=== PATIENT | male | born 1950 | race American Indian/Alaskan Native ===

== ENCOUNTER 2017-06-12 04:24 | Emergency (ER) | payer MEDICARE ==
[2017-06-12 05:27] LABS: Basophils % (Auto) 0.9 % (0.0-1.8); Eosinophils % (Auto) 2.6 % (0.0-4.3); Hematocrit 36.2 % (35.5-45.6); Hemoglobin 11.4 gm/dl (11.8-15.2); Mean Corpuscular HGB Conc 31 % (32-34); Mean Corpuscular Volume 71 fl (84-94); Platelet Count 144 K/mm3 (140-440); Red Blood Count 5.12 M/mm3 (3.65-5.03); Red Cell Distribution Width 15.2 % (13.2-15.2); White Blood Count 5.3 K/mm3 (4.5-11.0)
[2017-06-12 05:29] LABS: Mean Corpuscular Hemoglobin 22 pg (28-32)
[2017-06-12 05:45] LABS: Anion Gap 23 mmol/L; Blood Urea Nitrogen 14 mg/dL (9-20); Calcium 9.3 mg/dL (8.4-10.2); Carbon Dioxide 20 mmol/L (22-30); Chloride 101.2 mmol/L (98-107); Glucose 286 mg/dL (75-100); Potassium 3.8 mmol/L (3.6-5.0); Sodium 140 mmol/L (137-145)
[2017-06-12 06:00] LABS: Bilirubin,Urine NEG (Negative); Blood,Urine MOD (Negative); Ketones,Urine NEG (Negative); Leukocyte Esterase,Urine NEG (Negative); Nitrite,Urine NEG (Negative); Protein,Urine <15 mg/dL mg/dL (Negative); Urobilinogen,Urine < 2.0 mg/dL (<2.0); WBC,Urine < 1.0 /HPF (0.0-6.0)
[2017-06-12 06:04] LABS: Erythrocyte Sedimentation Rate 7 mm/Hr (0-20)
[2017-06-12 07:56] VITALS: BP 181/117
== END 2017-06-12 08:20 ==
LOC: ED 04:24
DX: M79.671 Pain in right foot (principal); M79.672 Pain in left foot; Z53.21 Procedure and treatment not carried out due to patient leaving prior to being seen by health care provider
CPT/HCPCS: 36415; 80048; 81001; 82140; 82805; 83880; 85025; 85652

== ENCOUNTER 2021-04-06 18:04 | Inpatient (IN) | payer MEDICARE ==
--- NOTE | 2021-04-06 18:12 | Emergency Department Report ---
ED Neuro Deficit HPI - General Chief Complaint: Weakness Stated Complaint: stroke Time Seen by Provider: 04/06/21 18:07 Source: patient, EMS Mode of arrival: Stretcher Limitations: No Limitations - History of Present Illness Initial Comments: Patient is 70-year-old male who presents emergency room with complaints of worsening left-sided weakness, left facial droop, slurred speech, difficulty speaking, confusion. Patient states his last known well time was at 1 PM. Patient states he has had 4 strokes in the past but he did not have the severe weakness on his left side. Patient states he is always been able to move his limbs equally. Patient states that no modifying factors. Patient denies chest pain shortness of breath. Patient states he had some confusion . Patient denies fever or chills. Patient denies recent travel. Patient denies recent international travel. Patient denies exposure to the novel coronavirus. Patient denies sick contacts. Patient denies fever and chills. Patient denies cough. Patient denies diarrhea. Patient denies coming in contact with anybody with symptoms of the novel coronavirus. Patient brought in by EMS. EMS report received. -: Sudden Location: speech, left face, left arm, left leg Presenting Symptoms: Present: Weak/Paralyzed One Side, Facial Droop/Numbness, Unable to Speak Clearly History of same: Yes Place: home Severity: severe Quality: constant Improves With: none Worsens With: none On Anticoagulants: Yes Context: sudden onset Associated Symptoms: confusion, weakness. denies: chest pain, cough, diaphoresis, fever/chills, headaches, loss of appetite, malise, nausea/vomiting, vertigo, seizures, shortness of breath, syncope - Related Data Allergies/Adverse Reactions: Allergies Allergy/AdvReac Type Severity Reaction Status Date / Time No Known Allergies Allergy Verified 06/12/17 04:37 ED Review of Systems ROS: Stated complaint: STORKE Other details as noted in HPI Constitutional: weakness. denies: chills, fever Eyes: denies: eye pain, eye discharge, vision change ENT: denies: ear pain, throat pain Respiratory: denies: cough, shortness of breath, wheezing Cardiovascular: denies: chest pain, palpitations Endocrine: no symptoms reported Gastrointestinal: denies: abdominal pain, nausea, diarrhea Genitourinary: denies: urgency, dysuria Musculoskeletal: denies: back pain, joint swelling, arthralgia Skin: denies: rash, lesions Neurological: as per HPI, weakness, confusion. denies: headache, paresthesias Psychiatric: denies: anxiety, depression Hematological/Lymphatic: denies: easy bleeding, easy bruising ED Past Medical Hx - Past Medical History Previous Medical History?: Yes Hx Hypertension: Yes Hx CVA: Yes Hx Diabetes: Yes Additional medical history: Neuropathy feet - Surgical History Past Surgical History?: No - Family History Family history: no significant - Social History Smoking Status: Never Smoker Substance Use Type: None ED Neuro Physical Exam - General General appearance: alert, in no apparent distress Suspected Stroke: Yes - Head Head exam: Present: atraumatic, normocephalic - Eye Eye exam: Present: normal appearance - ENT ENT exam: Present: mucous membranes moist - Neck Neck exam: Present: normal inspection - Respiratory Respiratory exam: Present: normal lung sounds bilaterally. Absent: respiratory distress - Cardiovascular Cardiovascular Exam: Present: regular rate, normal rhythm. Absent: systolic murmur, diastolic murmur, rubs, gallop - GI/Abdominal GI/Abdominal exam: Present: soft, normal bowel sounds - Rectal Rectal exam: Present: deferred - Extremities Exam Extremities exam: Present: normal inspection - Back Exam Back exam: Present: normal inspection - Neurological Exam Neurological exam: Present: alert, oriented X3 - NIHSS Assessment Interval: Baseline 1a. Level of Consciousness: alert/keenly responsive 1b. LOC Questions: answers both correctly 1c. LOC Commands: performs tasks correctly 2. Best Gaze: normal 3. Visual: no visual loss 4. Facial Palsy: partial paralysis 5b. Motor Arm Right: no drift 5a. Motor Arm Left: drift 6a. Motor Leg Left: drift 6b. Motor Leg Right: no drift 7. Limb Ataxia: absent 8. Sensory: normal 9. Best Language: no aphasia 10. Dysarthria: mild/moderate dysarthria 11. Extinction/Inattention: no abnormality Total Score: 5 Stroke Severity: Moderate Stroke - Psychiatric Psychiatric exam: Present: normal affect, normal mood - Skin Skin exam: Present: warm, dry, intact, normal color. Absent: rash ED Course Vital Signs 04/06/21 04/06/21 04/06/21 18:43 19:30 19:46 Temperature 98.8 F Pulse Rate 110 H 89 86 Respiratory 18 17 24 Rate Blood Pressure 156/76 96/57 141/73 Blood Pressure [Right] O2 Sat by Pulse 98 98 98 Oximetry 04/06/21 04/06/21 04/06/21 20:00 20:16 20:30 Temperature Pulse Rate 87 81 82 Respiratory 18 16 18 Rate Blood Pressure 133/74 133/74 135/71 Blood Pressure [Right] O2 Sat by Pulse 98 98 97 Oximetry 04/06/21 04/06/21 04/06/21 20:40 20:50 20:54 Temperature Pulse Rate 79 82 101 H Respiratory 15 18 15 Rate Blood Pressure 131/74 137/81 Blood Pressure 103/62 [Right] O2 Sat by Pulse 98 97 100 Oximetry 04/06/21 04/06/21 21:00 21:10 Temperature Pulse Rate 82 76 Respiratory 16 14 Rate Blood Pressure 131/77 131/77 Blood Pressure [Right] O2 Sat by Pulse 95 97 Oximetry - Reevaluation(s) Reevaluation #1: Patient already been seen by neurology. No change in the patient's neurologic status. Patient vital signs are stable. 04/06/21 18:37 Reevaluation #2: Patient denies chest pain. Patient denies shortness of breath. No change in neurologic status. 04/06/21 19:18 Reevaluation #3: I discussed all results with patient. I discussed plan of care with patient. Patient agrees with plan of care and admission. Patient to be admitted to the hospitalist service. 04/06/21 20:18 - Consultations Consultation #2: Hospitalist consulted for admission. Hospitalist to admit patient. 04/06/21 20:17 - Lab Data Result diagrams: 04/06/21 18:45 04/06/21 18:45 Lab Results 04/06/21 04/06/21 04/06/21 Range/Units 18:45 18:45 18:45 WBC 15.6 H (4.5-11.0) K/mm3 RBC 5.77 H (3.65-5.03) M/mm3 Hgb 12.8 (11.8-15.2) gm/dl Hct 41.1 (35.5-45.6) % MCV 71 L (84-94) fl MCH 22 L (28-32) pg MCHC 31 L (32-34) % RDW 16.2 H (13.2-15.2) % Plt Count 102 L (140-440) K/mm3 Seg Neutrophils % Greenhouse Transplanter PT 15.4 H (12.2-14.9) Sec. INR 1.16 H (0.87-1.13) APTT 26.0 (24.2-36.6) Sec. Thrombin Time (15.1-19.6) Sec. Sodium 141 (137-145) mmol/L Potassium 3.5 L (3.6-5.0) mmol/L Chloride 105.1 (98-107) mmol/L Carbon Dioxide 25 (22-30) mmol/L Anion Gap 14 mmol/L BUN 22 H (9-20) mg/dL Creatinine 1.3 (0.8-1.3) mg/dL Estimated GFR > 60 ml/min BUN/Creatinine Ratio 17 % Glucose 125 H (75-100) mg/dL Calcium 9.1 (8.4-10.2) mg/dL Troponin T 0.015 (0.00-0.029) ng/mL 04/06/21 Range/Units 18:45 WBC (4.5-11.0) K/mm3 RBC (3.65-5.03) M/mm3 Hgb (11.8-15.2) gm/dl Hct (35.5-45.6) % MCV (84-94) fl MCH (28-32) pg MCHC (32-34) % RDW (13.2-15.2) % Plt Count (140-440) K/mm3 Seg Neutrophils % PT (12.2-14.9) Sec. INR (0.87-1.13) APTT (24.2-36.6) Sec. Thrombin Time 16.7 (15.1-19.6) Sec. Sodium (137-145) mmol/L Potassium (3.6-5.0) mmol/L Chloride (98-107) mmol/L Carbon Dioxide (22-30) mmol/L Anion Gap mmol/L BUN (9-20) mg/dL Creatinine (0.8-1.3) mg/dL Estimated GFR ml/min BUN/Creatinine Ratio % Glucose (75-100) mg/dL Calcium (8.4-10.2) mg/dL Troponin T (0.00-0.029) ng/mL - EKG Data -: EKG Interpreted by Tx EKG shows normal: sinus rhythm, axis, intervals, QRS complexes, ST-T waves Rate: normal - Radiology Data Radiology results: report reviewed CT head/brain wo con INDICATION / CLINICAL INFORMATION: 70 years Male; neuro deficits <6hrs or sx present upon awakening. TECHNIQUE: Routine CT head without contrast. All CT scans at this location are performed using CT dose reduction for ALARA by means of automated exposure control. COMPARISON: None. FINDINGS: BRAIN / INTRACRANIAL CONTENTS: There is a small lacunar infarct along the anterior right internal capsule which appears chronic though correlation would be needed given the history. There is otherwise mild cerebral white matter disease most consistent with microvascular angiopathy. There are also appear to be mild white matter changes within the toro at. The ventricular system is within normal limits in size and configuration. There is no clear CT evidence of acute intracranial hemorrhage or significant mass effect. ORBITS: No significant abnormality of visualized orbits. SINUSES / MASTOIDS: No significant abnormality in the visualized paranasal sinuses or mastoid air cells. CRANIOCERVICAL JUNCTION: No significant abnormality. ADDITIONAL FINDINGS: None. IMPRESSION: 1. 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 CT angio head INDICATION / CLINICAL INFORMATION: 70 years Male; weakness. r/o cva/. slurred speech. TECHNIQUE: Thin cut axial images obtained through the head during IV bolus con trast administration. Sagittal, coronal, and 3 plane MIP reconstructions performed by the [employer] . NASCET type criteria used evaluate stenoses. Automated exposure control utilized for radiation reduction purposes. COMPARISON: None available. FINDINGS: INTERNAL CAROTID ARTERIES: The motion and beam hardening degrade the image quality, particularly along the skull base at. However, there is atherosclerotic calcification involving distal internal carotid arteries with apparent mild to moderate narrowing, particularly involving the cavernous segments. 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 The distal right vertebral artery is dominant without significant focal narrowing. There is notable irregularity of the basilar artery which may reflect extensive atherosclerotic disease at. There is moderate to marked segmental stenosis involving more distal segment at. Milder narrowing is seen more proximally. CEREBRAL ARTERIES: There is diffuse irregularity of the cerebral arteries which may be exacerbated by the degree of motion though would also be indicative of diffuse atherosclerotic disease at. 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 ANEURYSM: None identified. 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 IMPRESSION: There is notable irregularity of the basilar artery with moderate to marked segmental narrowing of the mid to distal segment at. There is atherosclerotic calcification involving distal internal carotid arteries with mild to moderate segmental narrowing, most notably involving cavernous segments. There is diffuse irregularity of the intracranial vessels which appears to be exacerbated by the degree of motion. However, the findings be indicative of diffuse atherosclerotic disease as described. CT angio neck INDICATION / CLINICAL INFORMATION: 70 years Male; weakness. r/o cva/. slurred speech. TECHNIQUE: Thin cut axial images obtained through the head during IV bolus contrast administration. Sagittal, coronal, and 3 plane MIP reconstructions performed by the technologist. NASCET type criteria used evaluate stenoses. All CT scans at this location are performed using CT dose reduction for ALARA by means of automated exposure control. COMPARISON: None available. FINDINGS: CAROTID ARTERIES: There is mild calcified atherosclerotic plaque involving left carotid bifurcation without significant stenosis by NASCET to criteria. There is minimal plaque involving right carotid bifurcation without significant stenosis at. The proximal common carotid arteries are obscured by the beam hardening resulting from the dense contrast within the adjacent venous structures. However, there is no significant focal narrowing. VERTEBRAL ARTERIES: There is no significant focal stenosis involving visualized vertebral arteries. ARCH: There is developmental common origin of the brachiocephalic and left common carotid arteries. There is mild calcification involving the origin of the left subclavian artery without significant stenosis. ADDITIONAL FINDINGS: There is milder curvature of the cervical spine with multilevel degenerative changes. IMPRESSION: There is mild atherosclerotic plaque involving the carotid bifurcations without significant stenosis by NASCET criteria. - Medical Decision Making Patient is a 70-year-old male who presents emergency room with complaints of worsening left-sided weakness, facial droop, slurred speech, confusion. Patient has history of 4 strokes in the past. Patient had a code stroke initiated prior to arrival after. Report received from EMS. Report received EMS upon arrival. Patient sent directly to CT scan. Neurology was consulted prior to arrival. Neurology saw the patient immediately after arrival. Recommendations were received from neurology. Neurology did not recommend TPA and recommended a CTA to be done as soon as possible. Neurology stated that there is a large vessel occlusion to transfer the patient otherwise admitted for further stroke work-up to the hospital service. Patient had labs done which were essentially unremarkable. Patient's head CT shows no acute findings. Patient CTA of the head and neck show stenosis but no large vessel occlusion. Patient given aspirin. Patient admitted to the hospital service for further evaluation treatment. Critical care time documented due to the multiple reassessments, prolonged time at the bedside, interpretation of diagnostics and labs. - Differential Diagnosis CVA, weakness, slurred speech, facial droop Critical Care Time: Yes Critical care time in (mins) excluding proc time.: 35 Critical care attestation.: If time is entered above; I have spent that time in minutes in the direct care of this critically ill patient, excluding procedure time. Critical Care Time: 35 MINUTES ED Disposition Clinical Impression: Left-sided weakness, Facial droop, Slurred speech, Dysarthria CVA (cerebral vascular accident) Qualifiers: CVA mechanism: unspecified Qualified Code(s): I63.9 - Cerebral infarction, unspecified Disposition: DC-09 OP ADMIT IP TO THIS HOSP Is pt being admited?: Yes Does the pt Need Aspirin: No Condition: Critical Time of Disposition: 20:22
--- NOTE | 2021-04-06 18:37 | Cat Scan Report ---
CT head/brain wo con INDICATION / CLINICAL INFORMATION: 70 years Male; neuro deficits <6hrs or sx present upon awakening. TECHNIQUE: Routine CT head without contrast. All CT scans at this location are performed using CT dos e reduction for ALARA by means of automated exposure control. COMPARISON: None. FINDINGS: BRAIN / INTRACRANIAL CONTENTS: There is a small lacunar infarct along the anterior right internal cap alondra which appears chronic though correlation would be needed given the history. There is otherwise m ild cerebral white matter disease most consistent with microvascular angiopathy. There are also appear to be mild white matter changes within the toro at. The ventricular system is w ithin normal limits in size and configuration. There is no clear CT evidence of acute intracranial he morrhage or significant mass effect. ORBITS: No significant abnormality of visualized orbits. SINUSES / MASTOIDS: No significant abnormality in the visualized paranasal sinuses or mastoid air taj ls. CRANIOCERVICAL JUNCTION: No significant abnormality. ADDITIONAL FINDINGS: None. IMPRESSION: 1. 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 The CT was specified as code stroke and called emergently to Dr. Dill in the ER at 5:30 PM [facility] standard time. Signer Name: Kaveh Griffith MD Signed: 04/06/2021 6:33 PM Workstation Name: [id number]
--- NOTE | 2021-04-06 18:44 | Consultation ---
History of Present Illness History of present illness: [facility] Consult Note # Demographics Consult Type: Acute Stroke Level 1 (0-4.5 hrs) Patient Location: Emergency Room First Name: Radu Last Name: Austin Date of : 1950 Age: 70 Gender: Male Time of Initial Page ( Time): 04/06/2021, 18:09 Time of Return Call ( Time): 04/06/2021, 18:10 # HPI Chief Complaint: weakness (focal) History: 70M with prior strokes x4 with residual left sided weakness, HTN, DM, on ASA and claims on blood thinner presents with worsened left-sided strength and facial droop. LKWT 1300 EST; son found him at 1730, slumped over in chair. # Scores Time of exam and NIHSS (): 04/06/2021, 18:12 Level of Consciousness 1a: [0] = Alert; keenly responsive LOC Questions 1b: [1] = Answers one correctly LOC Commands 1c: [0] = Performs both tasks correctly Best Gaze 2: [0] = Normal Visual 3: [0] = No visual loss Facial Palsy 4: [0] = Normal symmetrical movements Motor Arm Left 5a: [1] = Drift Motor Arm Right 5b: [0] = No drift Motor Leg Left 6a: [3] = No effort against gravity Motor Leg Right 6b: [2] = Some effort against gravity Limb Ataxia 7: [0] = Absent Sensory 8: [0] = Normal Best Language 9: [1] = [id number] aphasia Dysarthria 10: [1] = [id number] dysarthria Extinction and Inattention 11: [0] = No abnormality NIHSS Total: 9 # Assessment Impression: Ischemic Stroke (Acute) # Plan Thrombolytic/Intervention: NOT IV Thrombolytic or IA Intervention Thrombolytic Exclusion: > 4.5 hours Intraarterial Exclusion: poor functional baseline Target Blood Pressure: SBP < 220 DBP < 105 Labs: hemoglobin A1c lipid panel Imaging: (urgency: STAT): CT Angiogram Head and CT Angiogram Neck AND call back with results if abnormal if LVO present, would transfer for further evaluation Imaging: (urgency: routine): MRI Brain without contrast Diagnostic Test: echo without bubble study Therapy/Evaluation: PT/OT evaluation speech/swallow consultation Medication: ASA 325, atorvastatin 80; clarify whether patient is on blood thinner DVT Prophylaxis: SCD chemical DVT prophylaxis Other: LDL < 70 permissive hypertension telemetry monitoring I have discussed my recommendations with the referring provider Disposition: admit # Logistics Telemedicine: Interactive 2 way audio and visual telecommunication technology was utilized during this visit Electronically signed at 04/06/2021 18:43 (Eastern Time) by Thad Rojas MD Medications and Allergies Allergies Allergy/AdvReac Type Severity Reaction Status Date / Time No Known Allergies Allergy Verified 06/12/17 04:37
[2021-04-06 18:54] LABS: Hematocrit 41.1 % (35.5-45.6); Hemoglobin 12.8 gm/dl (11.8-15.2); Mean Corpuscular HGB Conc 31 % (32-34); Mean Corpuscular Volume 71 fl (84-94); Platelet Count 102 K/mm3 (140-440); Red Blood Count 5.77 M/mm3 (3.65-5.03); Red Cell Distribution Width 16.2 % (13.2-15.2)
[2021-04-06 19:04] LABS: INR 1.16 (0.87-1.13)
[2021-04-06 19:08] LABS: BUN/Creatinine Ratio 17; Blood Urea Nitrogen 22 mg/dL (9-20); Calcium 9.1 mg/dL (8.4-10.2); Hemolysis Index 14
--- NOTE | 2021-04-06 20:02 | Cat Scan Report ---
CT angio head INDICATION / CLINICAL INFORMATION: 70 years Male; weakness. r/o cva/. slurred speech. TECHNIQUE: Thin cut axial images obtained through the head during IV bolus contrast administration. S agittal, coronal, and 3 plane MIP reconstructions performed by the technologist. NASCET type criteria used evaluate stenoses. Automated exposure control utilized for radiation reduction purposes. COMPARISON: None available. FINDINGS: INTERNAL CAROTID ARTERIES: The motion and beam hardening degrade the image quality, particularly abby g the skull base at. However, there is atherosclerotic calcification involving distal internal caroti d arteries with apparent mild to moderate narrowing, particularly involving the cavernous segments. 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 The di stal right vertebral artery is dominant without significant focal narrowing. There is notable irregularity of the basilar artery which may reflect extensive atherosclerotic disea se at. There is moderate to marked segmental stenosis involving more distal segment at. Milder narrow ing is seen more proximally. CEREBRAL ARTERIES: There is diffuse irregularity of the cerebral arteries which may be exacerbated by the degree of motion though would also be indicative of diffuse atherosclerotic disease at. 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 ANEURYSM: None identified. ADDITIONAL FINDINGS: The findings are compatible with developmental hypoplasia the left transverse an d sigmoid sinuses. IMPRESSION: There is notable irregularity of the basilar artery with moderate to marked segmental narrowing of th e mid to distal segment at. There is atherosclerotic calcification involving distal internal carotid arteries with mild to modera te segmental narrowing, most notably involving cavernous segments. There is diffuse irregularity of the intracranial vessels which appears to be exacerbated by the degr ee of motion. However, the findings be indicative of diffuse atherosclerotic disease as described. Signer Name: Kaveh Griffith MD Signed: 04/06/2021 7:58 PM Workstation Name: [id number]
--- NOTE | 2021-04-06 20:06 | History and Physical Report ---
History of Present Illness Chief complaint: I feel weak on my left side History of present illness: 70 YO Male with HTN, CVA, DM complicated by Peripheral Neuropathy presents to ED for evaluation. Patient reports "I feel weak on my left side". Patient states that he was in his usual state of health around 1300 hrs. Patient states that he experienced a sudden onset of left-sided weakness, slurred speech, and confus ion. EMS was notified and upon arrival the patient was found to be in distress with a focal neurologic deficit. A code stroke was called and the patient was transported to [facility] for further care and evaluation of the aforementioned symptoms. The patient was seen and evaluated in the emergency department. All lab and image studies reviewed. Patient found to have clinical symptoms consistent with CVA. Patient placed in observation status and admitted to telemetry and initiated on CVA protocol. Patient denies fever, chills, chest pain, palpitation, productive cough, skin rash, recent ill contacts, known exposure to COVID-19. Advanced care planning conducted in ED. no prior admission for review. All medication listed at time of admission has been reconciled. Past History Past Medical History: diabetes, hypertension, stroke, other (see HPI) Past Surgical History: No surgical history, Other (reviewed) Social history: . denies: smoking, alcohol abuse, prescription drug abuse Family history: diabetes, hypertension Medications and Allergies Allergies Allergy/AdvReac Type Severity Reaction Status Date / Time No Known Allergies Allergy Verified 06/12/17 04:37 Review of Systems Constitutional: no weight loss, no weight gain, no chills, no sweats Ears, nose, mouth and throat: no ear pain, no ear discharge, no decreased hearing, no nose pain, no nasal congestion, no nasal discharge Cardiovascular: no chest pain, no palpitations, no lightheadedness Respiratory: no cough, no excessive sputum, no hemoptysis, no shortness of breath Gastrointestinal: no abdominal pain, no vomiting, no diarrhea, no change in bowel habits, no hematemesis, no coffee ground emesis Genitourinary Male: no hematuria, no discharge, no urinary frequency, no urinary hesitancy Rectal: no pain, no incontinence, no bleeding Musculoskeletal: no neck stiffness, no neck pain Integumentary: no rash, no sores, no wounds, no boils, no blisters Neurological: weakness, lack of coordination, change in speech, gait dysfunction, motor disturbance, no transient paralysis, no paralysis, no seizures Psychiatric: no anxiety, no change in sleep habits, no insomnia, no hypersomnia, no change in appetite, no suicidal ideation, no hallucinations Endocrine: no cold intolerance, no heat intolerance, no excessive thirst, no polydipsia, no polyuria, no excessive sweating, no flushing Hematologic/Lymphatic: no easy bruising, no easy bleeding, no lymphadenopathy Allergic/Immunologic: no urticaria, no allergic rhinitis, no wheezing, no persistent infections, no anaphylaxis, no angioedema Exam - Constitutional Vitals: Temp Pulse Resp BP Pulse Ox 98.8 F 89 17 96/57 98 04/06/21 18:43 04/06/21 19:30 04/06/21 19:30 04/06/21 19:30 04/06/21 19:30 General appearance: Present: mild distress - EENT Eyes: Present: PERRL ENT: hearing intact, clear oral mucosa - Neck Neck: Present: supple, normal ROM - Respiratory Respiratory effort: normal Respiratory: bilateral: CTA - Cardiovascular Heart Sounds: Present: S1 & S2. Absent: rub, click - Extremities Extremities: pulses symmetrical, No edema Peripheral Pulses: within normal limits - Abdominal General gastrointestinal: Present: soft, non-tender, non-distended, normal bowel sounds Male genitourinary: Present: normal - Integumentary Integumentary: Present: clear, warm, dry - Musculoskeletal Musculoskeletal: left sided weakness - Psychiatric Psychiatric: appropriate mood/affect, intact judgment & insight - Neurologic Neurologic: CNII-XII intact, moves all extremities, no gait normal HEART Score - HEART Score Troponin: Troponin T 0.015 ng/mL (0.00-0.029) 04/06/21 18:45 Results - Labs CBC & Chem 7: 04/06/21 18:45 04/06/21 18:45 Labs: Abnormal lab results 04/06/21 04/06/21 04/06/21 Range/Units 18:45 18:45 18:45 WBC 15.6 H (4.5-11.0) K/mm3 RBC 5.77 H (3.65-5.03) M/mm3 MCV 71 L (84-94) fl MCH 22 L (28-32) pg MCHC 31 L (32-34) % RDW 16.2 H (13.2-15.2) % Plt Count 102 L (140-440) K/mm3 PT 15.4 H (12.2-14.9) Sec. INR 1.16 H (0.87-1.13) Potassium 3.5 L (3.6-5.0) mmol/L BUN 22 H (9-20) mg/dL Glucose 125 H (75-100) mg/dL Assessment and Plan - Patient Problems (1) CVA (cerebral vascular accident) Current Visit: Yes Status: Acute Qualifiers: CVA mechanism: unspecified Qualified Code(s): I63.9 - Cerebral infarction, unspecified Plan to address problem: CVA protocol: CT head, neuro check, seizure precaution, aspiration precautions, dual antiplatelet therapy, physical therapy consulted, Occupational Therapy consulted, speech therapy consulted, swallow screen conducted in ED. Statin therapy, lipid panel. Telemetry neurology consulted in ED., (2) Left hemiparesis Current Visit: Yes Status: Acute Plan to address problem: Physical therapy consulted, supportive care. (3) HTN (hypertension) Current Visit: Yes Status: Acute Qualifiers: Hypertension type: essential hypertension Qualified Code(s): I10 - Essential (primary) hypertension Plan to address problem: Monitor blood pressure every shift, permissive hypertension overnight. (4) DVT prophylaxis Current Visit: Yes Status: Acute Plan to address problem: SCD to bilateral lower extremities while in bed, patient is ambulatory. (5) Advance care planning Current Visit: Yes Status: Acute Plan to address problem: Disease education done, care plan discussed, diagnosis discussed, prognosis discussed, patient knowledges understanding agree with care plan, patient is full code, +30 minutes.
[2021-04-06] MEDS ORDERED: ONDANSETRON 4 MG/2 ML INJ IV PRN (20:09)
[2021-04-06] MEDS ORDERED: MAGNESIUM HYDROXIDE (MOM) ORAL LIQD UDC PO PRN (20:09)
[2021-04-06] MEDS ORDERED: PROMETHAZINE 25 MG RECT SUPP PR PRN (20:09)
--- NOTE | 2021-04-06 20:17 | Cat Scan Report ---
CT angio neck INDICATION / CLINICAL INFORMATION: 70 years Male; weakness. r/o cva/. slurred speech. TECHNIQUE: Thin cut axial images obtained through the head during IV bolus contrast administration. S agittal, coronal, and 3 plane MIP reconstructions performed by the technologist. NASCET type criteria used evaluate stenoses. All CT scans at this location are performed using CT dose reduction for ALAR A by means of automated exposure control. COMPARISON: None available. FINDINGS: CAROTID ARTERIES: There is mild calcified atherosclerotic plaque involving left carotid bifurcation w ithout significant stenosis by NASCET to criteria. There is minimal plaque involving right carotid bifurcation without significant stenosis at. The prox imal common carotid arteries are obscured by the beam hardening resulting from the dense contrast wit hin the adjacent venous structures. However, there is no significant focal narrowing. VERTEBRAL ARTERIES: There is no significant focal stenosis involving visualized vertebral arteries. ARCH: There is developmental common origin of the brachiocephalic and left common carotid arteries. T here is mild calcification involving the origin of the left subclavian artery without significant cristiane nosis. ADDITIONAL FINDINGS: There is milder curvature of the cervical spine with multilevel degenerative jose nges. IMPRESSION: There is mild atherosclerotic plaque involving the carotid bifurcations without significant stenosis by NASCET criteria. Signer Name: Kaveh Griffith MD Signed: 04/06/2021 8:13 PM Workstation Name: [id number]
[2021-04-06] MEDS ORDERED: ASPIRIN 325 MG TAB PO ONE (20:20)
[2021-04-06] MEDS ORDERED: VANCOMYCIN/NS 1 GM/250 ML 1 GM/250 ML BAG IV ONE (22:00)
[2021-04-07 03:44] LABS: Total Cells Counted 100
[2021-04-07 03:45] LABS: Anisocytosis 1+
[2021-04-07 03:46] LABS: Platelet Estimate Consistent w Auto
[2021-04-07 06:39] LABS: Chol/HDL Ratio 1.95 %
[2021-04-07] MEDS: CLOPIDOGREL 75 MG TAB PO SCH (09:31)
[2021-04-07] MEDS: ASPIRIN 325 MG TAB PO SCH (09:31)
--- NOTE | 2021-04-07 09:49 | Progress Note ---
Assessment and Plan Assessment and plan: CVA Left hemiparesis Accelerated hypertension Diabetes mellitus type 2 Diabetic neuropathy. 04/07/2021. CTA of the head revealed basilar artery with moderate to marked segmental narrowing of the mid to distal segment. There is also atherosclerotic calcification involving the distal internal carotid arteries with mild to moderate segmental narrowing. Echocardiogram is pending. PT/OT/ST. Neurology consultation. Continue aspirin, Plavix and Lipitor. Allow for permissive hypertension since admission. We will start low-dose Procardia for accelerated hypertension today. History Interval history: No new issues overnight. Hospitalist Physical - Constitutional Vitals: Temp Pulse Resp BP Pulse Ox 98.0 F 89 18 173/102 95 04/07/21 09:32 04/07/21 09:32 04/07/21 09:32 04/07/21 09:32 04/07/21 09:32 General appearance: Present: mild distress - EENT Eyes: Present: PERRL, EOM intact ENT: hearing intact, clear oral mucosa, dentition normal - Neck Neck: Present: supple, normal ROM - Respiratory Respiratory effort: normal Respiratory: bilateral: CTA - Cardiovascular Rhythm: regular Heart Sounds: Present: S1 & S2. Absent: gallop, rub - Extremities Extremities: no ischemia, No edema, Full ROM - Abdominal General gastrointestinal: soft, non-tender, non-distended, normal bowel sounds - Integumentary Integumentary: Present: clear, warm, dry - Neurologic Neurologic: CNII-XII intact, moves all extremities HEART Score - HEART Score Troponin: Troponin T 0.015 ng/mL (0.00-0.029) 04/06/21 18:45 Results - Labs CBC & Chem 7: 04/06/21 18:45 04/06/21 18:45 Labs: Laboratory Last Values WBC 15.6 K/mm3 (4.5-11.0) H 04/06/21 18:45 RBC 5.77 M/mm3 (3.65-5.03) H 04/06/21 18:45 Hgb 12.8 gm/dl (11.8-15.2) 04/06/21 18:45 Hct 41.1 % (35.5-45.6) 04/06/21 18:45 MCV 71 fl (84-94) L 04/06/21 18:45 MCH 22 pg (28-32) L 04/06/21 18:45 MCHC 31 % (32-34) L 04/06/21 18:45 RDW 16.2 % (13.2-15.2) H 04/06/21 18:45 Plt Count 102 K/mm3 (140-440) L 04/06/21 18:45 Add Manual Diff Complete 04/06/21 18:45 Total Counted 100 04/06/21 18:45 Seg Neutrophils % General Maintenance Technician 04/06/21 18:45 Seg Neuts % (Manual) 90.0 % (40.0-70.0) H 04/06/21 18:45 Lymphocytes % (Manual) 8.0 % (13.4-35.0) L 04/06/21 18:45 Monocytes % (Manual) 2.0 % (0.0-7.3) 04/06/21 18:45 Nucleated RBC % Not Reportable 04/06/21 18:45 Seg Neutrophils # Man 14.0 K/mm3 (1.8-7.7) H 04/06/21 18:45 Band Neutrophils # 0.0 K/mm3 04/06/21 18:45 Lymphocytes # (Manual) 1.2 K/mm3 (1.2-5.4) 04/06/21 18:45 Abs React Lymphs (Man) 0.0 K/mm3 04/06/21 18:45 Monocytes # (Manual) 0.3 K/mm3 (0.0-0.8) 04/06/21 18:45 Eosinophils # (Manual) 0.0 K/mm3 (0.0-0.4) 04/06/21 18:45 Basophils # (Manual) 0.0 K/mm3 (0.0-0.1) 04/06/21 18:45 Metamyelocytes # 0.0 K/mm3 04/06/21 18:45 Myelocytes # 0.0 K/mm3 04/06/21 18:45 Promyelocytes # 0.0 K/mm3 04/06/21 18:45 Blast Cells # 0.0 K/mm3 04/06/21 18:45 WBC Morphology Not Reportable 04/06/21 18:45 Hypersegmented Neuts Not Reportable 04/06/21 18:45 Hyposegmented Neuts Not Reportable 04/06/21 18:45 Hypogranular Neuts Not Reportable 04/06/21 18:45 Smudge Cells Not Reportable 04/06/21 18:45 Toxic Granulation Not Reportable 04/06/21 18:45 Toxic Vacuolation Not Reportable 04/06/21 18:45 Dohle Bodies Not Reportable 04/06/21 18:45 Pelger-Huet Anomaly Not Reportable 04/06/21 18:45 Chris Rods Not Reportable 04/06/21 18:45 Platelet Estimate Consistent w auto 04/06/21 18:45 Clumped Platelets Not Reportable 04/06/21 18:45 Plt Clumps, EDTA Not Reportable 04/06/21 18:45 Large Platelets Not Reportable 04/06/21 18:45 Giant Platelets Not Reportable 04/06/21 18:45 Platelet Satelliting Not Reportable 04/06/21 18:45 Plt Morphology Comment Not Reportable 04/06/21 18:45 RBC Morphology Not Reportable 04/06/21 18:45 Dimorphic RBCs Not Reportable 04/06/21 18:45 Polychromasia Not Reportable 04/06/21 18:45 Hypochromasia Not Reportable 04/06/21 18:45 Poikilocytosis Not Reportable 04/06/21 18:45 Anisocytosis 1+ 04/06/21 18:45 Microcytosis Not Reportable 04/06/21 18:45 Macrocytosis Not Reportable 04/06/21 18:45 Spherocytes Not Reportable 04/06/21 18:45 Pappenheimer Bodies Not Reportable 04/06/21 18:45 Sickle Cells Not Reportable 04/06/21 18:45 Target Cells Not Reportable 04/06/21 18:45 Tear Drop Cells Not Reportable 04/06/21 18:45 Ovalocytes Not Reportable 04/06/21 18:45 Helmet Cells Not Reportable 04/06/21 18:45 [place] Bodies Not Reportable 04/06/21 18:45 [place] Rings Not Reportable 04/06/21 18:45 Helio Cells Not Reportable 04/06/21 18:45 Bite Cells Not Reportable 04/06/21 18:45 Crenated Cell Not Reportable 04/06/21 18:45 Elliptocytes Not Reportable 04/06/21 18:45 Acanthocytes (Spur) Not Reportable 04/06/21 18:45 Rouleaux Not Reportable 04/06/21 18:45 Hemoglobin C Crystals Not Reportable 04/06/21 18:45 Schistocytes Not Reportable 04/06/21 18:45 Malaria parasites Not Reportable 04/06/21 18:45 Ronnell Bodies Not Reportable 04/06/21 18:45 Hem Pathologist Commnt No 04/06/21 18:45 PT 15.4 Sec. (12.2-14.9) H 04/06/21 18:45 INR 1.16 (0.87-1.13) H 04/06/21 18:45 APTT 26.0 Sec. (24.2-36.6) 04/06/21 18:45 Thrombin Time 16.7 Sec. (15.1-19.6) 04/06/21 18:45 Sodium 141 mmol/L (137-145) 04/06/21 18:45 Potassium 3.5 mmol/L (3.6-5.0) L 04/06/21 18:45 Chloride 105.1 mmol/L (98-107) 04/06/21 18:45 Carbon Dioxide 25 mmol/L (22-30) 04/06/21 18:45 Anion Gap 14 mmol/L 04/06/21 18:45 BUN 22 mg/dL (9-20) H 04/06/21 18:45 Creatinine 1.3 mg/dL (0.8-1.3) 04/06/21 18:45 Estimated GFR > 60 ml/min 04/06/21 18:45 BUN/Creatinine Ratio 17 % 04/06/21 18:45 Glucose 125 mg/dL (75-100) H 04/06/21 18:45 Calcium 9.1 mg/dL (8.4-10.2) 04/06/21 18:45 Troponin T 0.015 ng/mL (0.00-0.029) 04/06/21 18:45 Triglycerides 80 mg/dL (2-149) 04/07/21 05:40 Cholesterol 131 mg/dL (50-199) 04/07/21 05:40 LDL Cholesterol Direct 54 mg/dL (50-130) 04/07/21 05:40 HDL Cholesterol 67 mg/dL (40-59) H 04/07/21 05:40 Cholesterol/HDL Ratio 1.95 % 04/07/21 05:40 Streeter/IV: Voiding Method Urinal Active Medications - Current Medications Current Medications: Generic Name Dose Route Start Last Admin Trade Name Freq PRN Reason Stop Dose Admin Acetaminophen 650 mg 04/06/21 20:09 Acetaminophen 325 Mg Tab PO Q4H PRN Pain, Mild (1-3) Aspirin 325 mg 04/07/21 10:00 04/07/21 09:31 Aspirin 325 Mg Tab PO 325 mg QDAY ALDO Administration Atorvastatin Calcium 40 mg 04/06/21 22:00 04/06/21 22:10 Atorvastatin 40 Mg Tab PO 40 mg QHS ALDO Administration Bisacodyl 10 mg 04/06/21 20:09 Bisacodyl 10 Mg Rect Supp DE QDAY PRN Constipation Clopidogrel Bisulfate 75 mg 04/07/21 10:00 04/07/21 09:31 Clopidogrel 75 Mg Tab PO 75 mg QDAY ALDO Administration Magnesium Hydroxide 30 ml 04/06/21 20:09 Magnesium Hydroxide (Mom) Oral Liqd Udc PO Q4H PRN Constipation Metoclopramide HCl 10 mg 04/06/21 20:09 Metoclopramide 10 Mg Tab PO Q6H PRN Nausea And Vomiting Ondansetron HCl 4 mg 04/06/21 20:09 Ondansetron 4 Mg/2 Ml Inj IV Q8H PRN Nausea And Vomiting Promethazine HCl 25 mg 04/06/21 20:09 Promethazine 25 Mg Rect Supp DE Q6H PRN Nausea And Vomiting Sodium Chloride 10 ml 04/06/21 20:09 Sodium Chloride 0.9% 10 Ml Flush Syringe IV PRN PRN LINE FLUSH
[2021-04-07] MEDS: NIFEdipine XL 30 MG TAB PO SCH ×2 (10:34→21:46)
[2021-04-08] MEDS: METOCLOPRAMIDE 10 MG TAB PO PRN ×2 (05:45→14:54)
--- NOTE | 2021-04-08 08:35 | Progress Note ---
Assessment and Plan Assessment and plan: CVA Left hemiparesis Accelerated hypertension SIRS Diabetes mellitus type 2 Diabetic neuropathy. 04/07/2021. CTA of the head revealed basilar artery with moderate to marked segmental narrowing of the mid to distal segment. There is also atherosclerotic calcification involving the distal internal carotid arteries with mild to moderate segmental narrowing. Echocardiogram is pending. PT/OT/ST. Neurology consultation. Continue aspirin, Plavix and Lipitor. Allow for permissive hypertension since admission. We will start low-dose Procardia for accelerated hypertension today. 04/08/2021. Blood pressure is better controlled but still elevated. Consider increasing Procardia. Patient with a fever of 101.8 last night and leukocytosis. No obvious source of infection. Check blood cultures, urinalysis, chest x-ray and monitor temperature curve. History Interval history: No new issues overnight. Hospitalist Physical - Constitutional Vitals: Temp Pulse Resp BP Pulse Ox 100.2 F H 77 18 151/84 98 04/08/21 03:58 04/08/21 03:58 04/08/21 07:42 04/08/21 03:58 04/08/21 07:42 General appearance: Present: mild distress - EENT Eyes: Present: PERRL, EOM intact ENT: hearing intact, clear oral mucosa, dentition normal - Neck Neck: Present: supple, normal ROM - Respiratory Respiratory effort: normal Respiratory: bilateral: CTA - Cardiovascular Rhythm: regular Heart Sounds: Present: S1 & S2. Absent: gallop, rub - Extremities Extremities: no ischemia, No edema, Full ROM - Abdominal General gastrointestinal: soft, non-tender, non-distended, normal bowel sounds - Integumentary Integumentary: Present: clear, warm, dry - Neurologic Neurologic: CNII-XII intact, moves all extremities HEART Score - HEART Score Troponin: Troponin T 0.015 ng/mL (0.00-0.029) 04/06/21 18:45 Results - Labs CBC & Chem 7: 04/06/21 18:45 04/06/21 18:45 Labs: Laboratory Last Values WBC 15.6 K/mm3 (4.5-11.0) H 04/06/21 18:45 RBC 5.77 M/mm3 (3.65-5.03) H 04/06/21 18:45 Hgb 12.8 gm/dl (11.8-15.2) 04/06/21 18:45 Hct 41.1 % (35.5-45.6) 04/06/21 18:45 MCV 71 fl (84-94) L 04/06/21 18:45 MCH 22 pg (28-32) L 04/06/21 18:45 MCHC 31 % (32-34) L 04/06/21 18:45 RDW 16.2 % (13.2-15.2) H 04/06/21 18:45 Plt Count 102 K/mm3 (140-440) L 04/06/21 18:45 Add Manual Diff Complete 04/06/21 18:45 Total Counted 100 04/06/21 18:45 Seg Neutrophils % Pin Machine Tender 04/06/21 18:45 Seg Neuts % (Manual) 90.0 % (40.0-70.0) H 04/06/21 18:45 Lymphocytes % (Manual) 8.0 % (13.4-35.0) L 04/06/21 18:45 Monocytes % (Manual) 2.0 % (0.0-7.3) 04/06/21 18:45 Nucleated RBC % Not Reportable 04/06/21 18:45 Seg Neutrophils # Man 14.0 K/mm3 (1.8-7.7) H 04/06/21 18:45 Band Neutrophils # 0.0 K/mm3 04/06/21 18:45 Lymphocytes # (Manual) 1.2 K/mm3 (1.2-5.4) 04/06/21 18:45 Abs React Lymphs (Man) 0.0 K/mm3 04/06/21 18:45 Monocytes # (Manual) 0.3 K/mm3 (0.0-0.8) 04/06/21 18:45 Eosinophils # (Manual) 0.0 K/mm3 (0.0-0.4) 04/06/21 18:45 Basophils # (Manual) 0.0 K/mm3 (0.0-0.1) 04/06/21 18:45 Metamyelocytes # 0.0 K/mm3 04/06/21 18:45 Myelocytes # 0.0 K/mm3 04/06/21 18:45 Promyelocytes # 0.0 K/mm3 04/06/21 18:45 Blast Cells # 0.0 K/mm3 04/06/21 18:45 WBC Morphology Not Reportable 04/06/21 18:45 Hypersegmented Neuts Not Reportable 04/06/21 18:45 Hyposegmented Neuts Not Reportable 04/06/21 18:45 Hypogranular Neuts Not Reportable 04/06/21 18:45 Smudge Cells Not Reportable 04/06/21 18:45 Toxic Granulation Not Reportable 04/06/21 18:45 Toxic Vacuolation Not Reportable 04/06/21 18:45 Dohle Bodies Not Reportable 04/06/21 18:45 Pelger-Huet Anomaly Not Reportable 04/06/21 18:45 Chris Rods Not Reportable 04/06/21 18:45 Platelet Estimate Consistent w auto 04/06/21 18:45 Clumped Platelets Not Reportable 04/06/21 18:45 Plt Clumps, EDTA Not Reportable 04/06/21 18:45 Large Platelets Not Reportable 04/06/21 18:45 Giant Platelets Not Reportable 04/06/21 18:45 Platelet Satelliting Not Reportable 04/06/21 18:45 Plt Morphology Comment Not Reportable 04/06/21 18:45 RBC Morphology Not Reportable 04/06/21 18:45 Dimorphic RBCs Not Reportable 04/06/21 18:45 Polychromasia Not Reportable 04/06/21 18:45 Hypochromasia Not Reportable 04/06/21 18:45 Poikilocytosis Not Reportable 04/06/21 18:45 Anisocytosis 1+ 04/06/21 18:45 Microcytosis Not Reportable 04/06/21 18:45 Macrocytosis Not Reportable 04/06/21 18:45 Spherocytes Not Reportable 04/06/21 18:45 Pappenheimer Bodies Not Reportable 04/06/21 18:45 Sickle Cells Not Reportable 04/06/21 18:45 Target Cells Not Reportable 04/06/21 18:45 Tear Drop Cells Not Reportable 04/06/21 18:45 Ovalocytes Not Reportable 04/06/21 18:45 Helmet Cells Not Reportable 04/06/21 18:45 [place] Bodies Not Reportable 04/06/21 18:45 [place] Rings Not Reportable 04/06/21 18:45 Helio Cells Not Reportable 04/06/21 18:45 Bite Cells Not Reportable 04/06/21 18:45 Crenated Cell Not Reportable 04/06/21 18:45 Elliptocytes Not Reportable 04/06/21 18:45 Acanthocytes (Spur) Not Reportable 04/06/21 18:45 Rouleaux Not Reportable 04/06/21 18:45 Hemoglobin C Crystals Not Reportable 04/06/21 18:45 Schistocytes Not Reportable 04/06/21 18:45 Malaria parasites Not Reportable 04/06/21 18:45 Ronnell Bodies Not Reportable 04/06/21 18:45 Hem Pathologist Commnt No 04/06/21 18:45 PT 15.4 Sec. (12.2-14.9) H 04/06/21 18:45 INR 1.16 (0.87-1.13) H 04/06/21 18:45 APTT 26.0 Sec. (24.2-36.6) 04/06/21 18:45 Thrombin Time 16.7 Sec. (15.1-19.6) 04/06/21 18:45 Sodium 141 mmol/L (137-145) 04/06/21 18:45 Potassium 3.5 mmol/L (3.6-5.0) L 04/06/21 18:45 Chloride 105.1 mmol/L (98-107) 04/06/21 18:45 Carbon Dioxide 25 mmol/L (22-30) 04/06/21 18:45 Anion Gap 14 mmol/L 04/06/21 18:45 BUN 22 mg/dL (9-20) H 04/06/21 18:45 Creatinine 1.3 mg/dL (0.8-1.3) 04/06/21 18:45 Estimated GFR > 60 ml/min 04/06/21 18:45 BUN/Creatinine Ratio 17 % 04/06/21 18:45 Glucose 125 mg/dL (75-100) H 04/06/21 18:45 Calcium 9.1 mg/dL (8.4-10.2) 04/06/21 18:45 Troponin T 0.015 ng/mL (0.00-0.029) 04/06/21 18:45 Triglycerides 80 mg/dL (2-149) 04/07/21 05:40 Cholesterol 131 mg/dL (50-199) 04/07/21 05:40 LDL Cholesterol Direct 54 mg/dL (50-130) 04/07/21 05:40 HDL Cholesterol 67 mg/dL (40-59) H 04/07/21 05:40 Cholesterol/HDL Ratio 1.95 % 04/07/21 05:40 Streeter/IV: Voiding Method Urinal Active Medications - Current Medications Current Medications: Generic Name Dose Route Start Last Admin Trade Name Freq PRN Reason Stop Dose Admin Acetaminophen 650 mg 04/06/21 20:09 Acetaminophen 325 Mg Tab PO Q4H PRN Pain, Mild (1-3) Aspirin 325 mg 04/07/21 10:00 04/07/21 09:31 Aspirin 325 Mg Tab PO 325 mg QDAY ALDO Administration Atorvastatin Calcium 40 mg 04/06/21 22:00 04/07/21 21:46 Atorvastatin 40 Mg Tab PO 40 mg QHS ALDO Administration Bisacodyl 10 mg 04/06/21 20:09 Bisacodyl 10 Mg Rect Supp AL QDAY PRN Constipation Clopidogrel Bisulfate 75 mg 04/07/21 10:00 04/07/21 09:31 Clopidogrel 75 Mg Tab PO 75 mg QDAY ALDO Administration Magnesium Hydroxide 30 ml 04/06/21 20:09 Magnesium Hydroxide (Mom) Oral Liqd Udc PO Q4H PRN Constipation Metoclopramide HCl 10 mg 04/06/21 20:09 04/08/21 05:45 Metoclopramide 10 Mg Tab PO 10 mg Q6H PRN Administration Nausea And Vomiting Nifedipine 30 mg 04/07/21 11:00 04/07/21 21:46 Nifedipine Xl 30 Mg Tab PO 30 mg Q12HR ALDO Administration Ondansetron HCl 4 mg 04/06/21 20:09 Ondansetron 4 Mg/2 Ml Inj IV Q8H PRN Nausea And Vomiting Promethazine HCl 25 mg 04/06/21 20:09 Promethazine 25 Mg Rect Supp AL Q6H PRN Nausea And Vomiting Sodium Chloride 10 ml 04/06/21 20:09 Sodium Chloride 0.9% 10 Ml Flush Syringe IV PRN PRN LINE FLUSH
[2021-04-08] MEDS: NIFEdipine XL 30 MG TAB PO SCH ×2 (09:44→21:13)
[2021-04-08] MEDS: CLOPIDOGREL 75 MG TAB PO SCH (09:44)
[2021-04-08] MEDS: ASPIRIN 325 MG TAB PO SCH (09:44)
--- NOTE | 2021-04-08 09:54 | XRay Report ---
CHEST 1 VIEW 04/08/2021 8:46 AM INDICATION / CLINICAL INFORMATION: fever. COMPARISON: None available. FINDINGS: SUPPORT DEVICES: None. HEART / MEDIASTINUM: Tortuous aorta. Normal size cardiac silhouette. Hilar and mediastinal contours a re otherwise unremarkable. LUNGS / PLEURA: No significant pulmonary or pleural abnormality. No pneumothorax. ADDITIONAL FINDINGS: No significant additional findings. IMPRESSION: 1. No acute findings. Signer Name: Paul Mathias MD Signed: 04/08/2021 9:50 AM Workstation Name: [id number]
[2021-04-08] MEDS: ACETAMINOPHEN 325 MG TAB PO PRN (13:48)
[2021-04-08 17:11] LABS: Bacteria,Urine 2+ /HPF (Negative); Bilirubin,Urine NEG (Negative); Blood,Urine MOD (Negative); Color,Urine Yellow (Yellow); Mucus,Urine FEW /HPF
[2021-04-08 17:18] LABS: WBC,Urine > 182.0 /HPF (0.0-6.0)
[2021-04-09] MEDS: ACETAMINOPHEN 325 MG TAB PO PRN (00:41)
[2021-04-09] MEDS: ASPIRIN 325 MG TAB PO SCH (08:59)
[2021-04-09] MEDS: CLOPIDOGREL 75 MG TAB PO SCH (08:59)
[2021-04-09] MEDS: NIFEdipine XL 30 MG TAB PO SCH ×2 (09:01→21:59)
--- NOTE | 2021-04-09 09:37 | Progress Note ---
Assessment and Plan Assessment and plan: CVA Left hemiparesis Accelerated hypertension Sepsis. Present on admission. Patient with tachycardia, fever, leukocytosis and diagnosis of UTI. UTI Diabetes mellitus type 2 Diabetic neuropathy. 04/07/2021. CTA of the head revealed basilar artery with moderate to marked segmental narrowing of the mid to distal segment. There is also atherosclerotic calcification involving the distal internal carotid arteries with mild to moderate segmental narrowing. Echocardiogram is pending. PT/OT/ST. Neurology consultation. Continue aspirin, Plavix and Lipitor. Allow for permissive hypertension since admission. We will start low-dose Procardia for accelerated hypertension today. 04/08/2021. Blood pressure is better controlled but still elevated. Consider increasing Procardia. Patient with a fever of 101.8 last night and leukocytosis. No obvious source of infection. Check blood cultures, urinalysis, chest x-ray and monitor temperature curve. 04/09/2021. Patient still with low-grade fever 100.7. Chest x-ray was negative but urinalysis revealed greater than 182 WBCs. Start IV antibiotics of Rocephin for UTI. Follow-up blood and urine cultures. With regards to the CVA, await MRI and echocardiogram. Neurology consultation pending. Continue PT/OT/ST. History Interval history: No new issues overnight. Hospitalist Physical - Constitutional Vitals: Temp Pulse Resp BP Pulse Ox 98.9 F 78 20 128/72 95 04/09/21 03:53 04/09/21 03:53 04/09/21 03:53 04/09/21 03:53 04/09/21 03:53 General appearance: Present: mild distress - EENT Eyes: Present: PERRL, EOM intact ENT: hearing intact, clear oral mucosa, dentition normal - Neck Neck: Present: supple, normal ROM - Respiratory Respiratory effort: normal Respiratory: bilateral: CTA - Cardiovascular Rhythm: regular Heart Sounds: Present: S1 & S2. Absent: gallop, rub - Extremities Extremities: no ischemia, No edema, Full ROM - Abdominal General gastrointestinal: soft, non-tender, non-distended, normal bowel sounds - Integumentary Integumentary: Present: clear, warm, dry - Neurologic Neurologic: CNII-XII intact, moves all extremities HEART Score - HEART Score Troponin: Troponin T 0.015 ng/mL (0.00-0.029) 04/06/21 18:45 Results - Labs CBC & Chem 7: 04/06/21 18:45 04/06/21 18:45 Labs: Laboratory Last Values WBC 15.6 K/mm3 (4.5-11.0) H 04/06/21 18:45 RBC 5.77 M/mm3 (3.65-5.03) H 04/06/21 18:45 Hgb 12.8 gm/dl (11.8-15.2) 04/06/21 18:45 Hct 41.1 % (35.5-45.6) 04/06/21 18:45 MCV 71 fl (84-94) L 04/06/21 18:45 MCH 22 pg (28-32) L 04/06/21 18:45 MCHC 31 % (32-34) L 04/06/21 18:45 RDW 16.2 % (13.2-15.2) H 04/06/21 18:45 Plt Count 102 K/mm3 (140-440) L 04/06/21 18:45 Add Manual Diff Complete 04/06/21 18:45 Total Counted 100 04/06/21 18:45 Seg Neutrophils % Ground Host/Hostess 04/06/21 18:45 Seg Neuts % (Manual) 90.0 % (40.0-70.0) H 04/06/21 18:45 Lymphocytes % (Manual) 8.0 % (13.4-35.0) L 04/06/21 18:45 Monocytes % (Manual) 2.0 % (0.0-7.3) 04/06/21 18:45 Nucleated RBC % Not Reportable 04/06/21 18:45 Seg Neutrophils # Man 14.0 K/mm3 (1.8-7.7) H 04/06/21 18:45 Band Neutrophils # 0.0 K/mm3 04/06/21 18:45 Lymphocytes # (Manual) 1.2 K/mm3 (1.2-5.4) 04/06/21 18:45 Abs React Lymphs (Man) 0.0 K/mm3 04/06/21 18:45 Monocytes # (Manual) 0.3 K/mm3 (0.0-0.8) 04/06/21 18:45 Eosinophils # (Manual) 0.0 K/mm3 (0.0-0.4) 04/06/21 18:45 Basophils # (Manual) 0.0 K/mm3 (0.0-0.1) 04/06/21 18:45 Metamyelocytes # 0.0 K/mm3 04/06/21 18:45 Myelocytes # 0.0 K/mm3 04/06/21 18:45 Promyelocytes # 0.0 K/mm3 04/06/21 18:45 Blast Cells # 0.0 K/mm3 04/06/21 18:45 WBC Morphology Not Reportable 04/06/21 18:45 Hypersegmented Neuts Not Reportable 04/06/21 18:45 Hyposegmented Neuts Not Reportable 04/06/21 18:45 Hypogranular Neuts Not Reportable 04/06/21 18:45 Smudge Cells Not Reportable 04/06/21 18:45 Toxic Granulation Not Reportable 04/06/21 18:45 Toxic Vacuolation Not Reportable 04/06/21 18:45 Dohle Bodies Not Reportable 04/06/21 18:45 Pelger-Huet Anomaly Not Reportable 04/06/21 18:45 Chris Rods Not Reportable 04/06/21 18:45 Platelet Estimate Consistent w auto 04/06/21 18:45 Clumped Platelets Not Reportable 04/06/21 18:45 Plt Clumps, EDTA Not Reportable 04/06/21 18:45 Large Platelets Not Reportable 04/06/21 18:45 Giant Platelets Not Reportable 04/06/21 18:45 Platelet Satelliting Not Reportable 04/06/21 18:45 Plt Morphology Comment Not Reportable 04/06/21 18:45 RBC Morphology Not Reportable 04/06/21 18:45 Dimorphic RBCs Not Reportable 04/06/21 18:45 Polychromasia Not Reportable 04/06/21 18:45 Hypochromasia Not Reportable 04/06/21 18:45 Poikilocytosis Not Reportable 04/06/21 18:45 Anisocytosis 1+ 04/06/21 18:45 Microcytosis Not Reportable 04/06/21 18:45 Macrocytosis Not Reportable 04/06/21 18:45 Spherocytes Not Reportable 04/06/21 18:45 Pappenheimer Bodies Not Reportable 04/06/21 18:45 Sickle Cells Not Reportable 04/06/21 18:45 Target Cells Not Reportable 04/06/21 18:45 Tear Drop Cells Not Reportable 04/06/21 18:45 Ovalocytes Not Reportable 04/06/21 18:45 Helmet Cells Not Reportable 04/06/21 18:45 Oliver-Bonsall Bodies Not Reportable 04/06/21 18:45 Barnard Rings Not Reportable 04/06/21 18:45 Helio Cells Not Reportable 04/06/21 18:45 Bite Cells Not Reportable 04/06/21 18:45 Crenated Cell Not Reportable 04/06/21 18:45 Elliptocytes Not Reportable 04/06/21 18:45 Acanthocytes (Spur) Not Reportable 04/06/21 18:45 Rouleaux Not Reportable 04/06/21 18:45 Hemoglobin C Crystals Not Reportable 04/06/21 18:45 Schistocytes Not Reportable 04/06/21 18:45 Malaria parasites Not Reportable 04/06/21 18:45 Ronnell Bodies Not Reportable 04/06/21 18:45 Hem Pathologist Commnt No 04/06/21 18:45 PT 15.4 Sec. (12.2-14.9) H 04/06/21 18:45 INR 1.16 (0.87-1.13) H 04/06/21 18:45 APTT 26.0 Sec. (24.2-36.6) 04/06/21 18:45 Thrombin Time 16.7 Sec. (15.1-19.6) 04/06/21 18:45 Sodium 141 mmol/L (137-145) 04/06/21 18:45 Potassium 3.5 mmol/L (3.6-5.0) L 04/06/21 18:45 Chloride 105.1 mmol/L (98-107) 04/06/21 18:45 Carbon Dioxide 25 mmol/L (22-30) 04/06/21 18:45 Anion Gap 14 mmol/L 04/06/21 18:45 BUN 22 mg/dL (9-20) H 04/06/21 18:45 Creatinine 1.3 mg/dL (0.8-1.3) 04/06/21 18:45 Estimated GFR > 60 ml/min 04/06/21 18:45 BUN/Creatinine Ratio 17 % 04/06/21 18:45 Glucose 125 mg/dL (75-100) H 04/06/21 18:45 Calcium 9.1 mg/dL (8.4-10.2) 04/06/21 18:45 Troponin T 0.015 ng/mL (0.00-0.029) 04/06/21 18:45 Triglycerides 80 mg/dL (2-149) 04/07/21 05:40 Cholesterol 131 mg/dL (50-199) 04/07/21 05:40 LDL Cholesterol Direct 54 mg/dL (50-130) 04/07/21 05:40 HDL Cholesterol 67 mg/dL (40-59) H 04/07/21 05:40 Cholesterol/HDL Ratio 1.95 % 04/07/21 05:40 Urine Color Yellow (Yellow) 04/08/21 16:56 Urine Turbidity Cloudy (Clear) 04/08/21 16:56 Urine pH 5.0 (5.0-7.0) 04/08/21 16:56 Ur Specific Reyno 1.014 (1.003-1.030) 04/08/21 16:56 Urine Protein 100 mg/dl mg/dL (Negative) 04/08/21 16:56 Urine Glucose (UA) >=500 mg/dL (Negative) 04/08/21 16:56 Urine Ketones Neg mg/dL (Negative) 04/08/21 16:56 Urine Blood Mod (Negative) 04/08/21 16:56 Urine Nitrite Neg (Negative) 04/08/21 16:56 Urine Bilirubin Neg (Negative) 04/08/21 16:56 Urine Urobilinogen 2.0 mg/dL (<2.0) 04/08/21 16:56 Ur Leukocyte Esterase Lg (Negative) 04/08/21 16:56 Urine WBC (Auto) > 182.0 /HPF (0.0-6.0) H 04/08/21 16:56 Urine RBC (Auto) 13.0 /HPF (0.0-6.0) 04/08/21 16:56 U Epithel Cells (Auto) 1.0 /HPF (0-13.0) 04/08/21 16:56 Urine Bacteria (Auto) 2+ /HPF (Negative) 04/08/21 16:56 Urine WBC Clumps 2+ /HPF 04/08/21 16:56 Urine Mucus Few /HPF 04/08/21 16:56 Microbiology: Microbiology 04/08/21 13:58 Peripheral/Venous Blood Culture - Preliminary Culture in Progress 04/08/21 13:58 Peripheral/Venous Blood Culture - Preliminary Culture in Progress Streeter/IV: Voiding Method Urinal Active Medications - Current Medications Current Medications: Generic Name Dose Route Start Last Admin Trade Name Freq PRN Reason Stop Dose Admin Acetaminophen 650 mg 04/06/21 20:09 04/09/21 00:41 Acetaminophen 325 Mg Tab PO 650 mg Q4H PRN Administration Pain, Mild (1-3) Aspirin 325 mg 04/07/21 10:00 04/09/21 08:59 Aspirin 325 Mg Tab PO 325 mg QDAY ALDO Administration Atorvastatin Calcium 40 mg 04/06/21 22:00 04/08/21 21:13 Atorvastatin 40 Mg Tab PO 40 mg QHS ALDO Administration Bisacodyl 10 mg 04/06/21 20:09 Bisacodyl 10 Mg Rect Supp SD QDAY PRN Constipation Clopidogrel Bisulfate 75 mg 04/07/21 10:00 04/09/21 08:59 Clopidogrel 75 Mg Tab PO 75 mg QDAY ALDO Administration Magnesium Hydroxide 30 ml 04/06/21 20:09 Magnesium Hydroxide (Mom) Oral Liqd Udc PO Q4H PRN Constipation Metoclopramide HCl 10 mg 04/06/21 20:09 04/08/21 14:54 Metoclopramide 10 Mg Tab PO 10 mg Q6H PRN Administration Nausea And Vomiting Nifedipine 30 mg 04/07/21 11:00 04/09/21 09:01 Nifedipine Xl 30 Mg Tab PO 30 mg Q12HR ALDO Administration Ondansetron HCl 4 mg 04/06/21 20:09 Ondansetron 4 Mg/2 Ml Inj IV Q8H PRN Nausea And Vomiting Promethazine HCl 25 mg 04/06/21 20:09 Promethazine 25 Mg Rect Supp SD Q6H PRN Nausea And Vomiting Sodium Chloride 10 ml 04/06/21 20:09 Sodium Chloride 0.9% 10 Ml Flush Syringe IV PRN PRN LINE FLUSH
--- NOTE | 2021-04-09 11:11 | Consultation ---
History of Present Illness Consult date: 04/09/21 Reason for Consult: Left side weakness History of present illness: I feel weak on my left side History of present illness: 70 YO Male with HTN, CVA, DM complicated by Peripheral Neuropathy presents to ED for evaluation. Patient reports "I feel weak on my left side". Patient states that he was in his usual state of health around 1300 hrs. Patient states that he experienced a sudden onset of left-sided weakness, slurred speech, and confusion. EMS was notified and upon arrival the patient was found to be in distress with a focal neurologic deficit. A code stroke was called and the patient was transported to [facility] for further care and evaluation of the aforementioned symptoms. The patient was seen and evaluated in the emergency department. All lab and image studies reviewed. Patient found to have clinical symptoms consistent with CVA. Patient placed in observation status and admitted to telemetry and initiated on CVA protocol. Patient denies fever, chills, chest pain, palpitation, productive cough, skin rash, recent ill contacts, known exposure to COVID-19. Advanced care planning conducted in ED. no prior admission for review. All medication listed at time of admission has been reconciled. According to pt. he had so far X5 CVA over the years , he use walker at home compling with medications Past History Past Medical History: diabetes, hypertension, stroke, other (see HPI) Past Surgical History: No surgical history, Other (reviewed) Social history: . denies: smoking, alcohol abuse, prescription drug abuse Family history: diabetes, hypertension Medications and Allergies Allergies Allergy/AdvReac Type Severity Reaction Status Date / Time No Known Allergies Allergy Verified 06/12/17 04:37 Review of Systems Constitutional: no weight loss, no weight gain, no chills, no sweats Ears, nose, mouth and throat: no ear pain, no ear discharge, no decreased hearing, no nose pain, no nasal congestion, no nasal discharge Cardiovascular: no chest pain, no palpitations, no lightheadedness Respiratory: no cough, no excessive sputum, no hemoptysis, no shortness of breath Gastrointestinal: no abdominal pain, no vomiting, no diarrhea, no change in bowel habits, no hematemesis, no coffee ground emesis Genitourinary Male: no hematuria, no discharge, no urinary frequency, no urinary hesitancy Rectal: no pain, no incontinence, no bleeding Musculoskeletal: no neck stiffness, no neck pain Integumentary: no rash, no sores, no wounds, no boils, no blisters Neurological: weakness, lack of coordination, change in speech, gait dysfunction, motor disturbance, no transient paralysis, no paralysis, no seizures Psychiatric: no anxiety, no change in sleep habits, no insomnia, no hypersomnia, no change in appetite, no suicidal ideation, no hallucinations Endocrine: no cold intolerance, no heat intolerance, no excessive thirst, no polydipsia, no polyuria, no excessive sweating, no flushing Hematologic/Lymphatic: no easy bruising, no easy bleeding, no lymphadenopathy Allergic/Immunologic: no urticaria, no allergic rhinitis, no wheezing, no persistent infections, no anaphylaxis, no angioedema Past History Past Medical History: diabetes, hypertension, stroke, other (see HPI) Past Surgical History: No surgical history, Other (reviewed) Social history: . denies: smoking, alcohol abuse, prescription drug abuse Family history: diabetes, hypertension Medications and Allergies Allergies Allergy/AdvReac Type Severity Reaction Status Date / Time No Known Allergies Allergy Verified 06/12/17 04:37 Home Medications Medication Instructions Recorded Confirmed Last Taken Type Aspirin [Aspirin BABY CHEW TAB] 81 mg PO DAILY 04/08/21 04/08/21 Unknown History AtorvaSTATin [Lipitor] 40 mg PO QHS 04/08/21 04/08/21 Unknown History Clopidogrel [Plavix] 75 mg PO QDAY 04/08/21 04/08/21 Unknown History Gabapentin [Neurontin] 400 mg PO Q8HR 04/08/21 04/08/21 Unknown History Losartan [Cozaar] 100 mg PO QDAY 04/08/21 04/08/21 Unknown History Spironolactone [Aldactone] 50 mg PO QDAY 04/08/21 04/08/21 Unknown History Tamsulosin [Flomax] 0.4 mg PO QDAY 04/08/21 04/08/21 Unknown History amLODIPine [Norvasc] 10 mg PO DAILY 04/08/21 04/08/21 Unknown History carvediloL [Coreg] 12.5 mg PO BID 04/08/21 04/08/21 Unknown History hydrALAZINE [Apresoline TAB] 100 mg PO TID 04/08/21 04/08/21 Unknown History hydroCHLOROthiazide 12.5 mg PO DAILY 04/08/21 04/08/21 Unknown History [Hydrochlorothiazide] Active Meds: Active Medications Acetaminophen (Acetaminophen 325 Mg Tab) 650 mg PO Q4H PRN PRN Reason: Pain, Mild (1-3) Last Admin: 04/09/21 00:41 Dose: 650 mg Documented by: Aspirin (Aspirin 325 Mg Tab) 325 mg PO QDAY [facility] Last Admin: 04/09/21 08:59 Dose: 325 mg Documented by: Atorvastatin Calcium (Atorvastatin 40 Mg Tab) 40 mg PO QHS [facility] Last Admin: 04/08/21 21:13 Dose: 40 mg Documented by: Bisacodyl (Bisacodyl 10 Mg Rect Supp) 10 mg VT QDAY PRN PRN Reason: Constipation Clopidogrel Bisulfate (Clopidogrel 75 Mg Tab) 75 mg PO QDAY [facility] Last Admin: 04/09/21 08:59 Dose: 75 mg Documented by: Ceftriaxone Sodium (Rocephin/Ns 1 Gm/50 Ml) 1 gm in 50 mls @ 100 mls/hr IV Q24H [facility]; Protocol Magnesium Hydroxide (Magnesium Hydroxide (Mom) Oral Liqd Udc) 30 ml PO Q4H PRN PRN Reason: Constipation Metoclopramide HCl (Metoclopramide 10 Mg Tab) 10 mg PO Q6H PRN PRN Reason: Nausea And Vomiting Last Admin: 04/08/21 14:54 Dose: 10 mg Documented by: Nifedipine (Nifedipine Xl 30 Mg Tab) 30 mg PO Q12HR [facility] Last Admin: 04/09/21 09:01 Dose: 30 mg Documented by: Ondansetron HCl (Ondansetron 4 Mg/2 Ml Inj) 4 mg IV Q8H PRN PRN Reason: Nausea And Vomiting Promethazine HCl (Promethazine 25 Mg Rect Supp) 25 mg VT Q6H PRN PRN Reason: Nausea And Vomiting Sodium Chloride (Sodium Chloride 0.9% 10 Ml Flush Syringe) 10 ml IV PRN PRN PRN Reason: LINE FLUSH Physical Examination - Vital Signs Vital Signs: Vital Signs Temp Pulse Resp BP Pulse Ox 98.8 F 110 H 18 156/76 98 04/06/21 18:43 04/06/21 18:43 04/06/21 18:43 04/06/21 18:43 04/06/21 18:43 - Constitutional General appearance: comfortable - EENT EENT: Present: PERRL, mucous membranes moist - Respiratory Respiratory: Present: lungs clear, rhonchi - Cardiovascular Cardiovascular: Present: regular rate, normal S1, normal S2 Extremities: Present: no peripheral edema bilatateraly - Gastrointestinal Gastrointestinal: Present: normoactive bowel sounds - Integumentary Integumentary: Present: normal - Neurologic Cranial nerve examination: PERRL, EOMI, other (left facial droop , no visual field defect no sensory impairment is noted) Speech examination: other (slurred speech ) Detailed motor examination: other (left upper 3+/5 left lower 4-/5, use walker for ambulation) Motor examination - right side: 10/31: triceps, wrist flexion, wrist extension, relish blender, hip flexors, knee extensors, dorsiflexion, toe extension (EHL), plantarflexion Results - Laboratory Findings CBC and BMP: 04/06/21 18:45 04/06/21 18:45 Abnormal Lab Findings: Abnormal Labs 04/06/21 04/06/21 04/06/21 18:45 18:45 18:45 WBC 15.6 H RBC 5.77 H MCV 71 L MCH 22 L MCHC 31 L RDW 16.2 H Plt Count 102 L Seg Neuts % (Manual) 90.0 H Lymphocytes % (Manual) 8.0 L Seg Neutrophils # Man 14.0 H PT 15.4 H INR 1.16 H Potassium 3.5 L BUN 22 H Glucose 125 H HDL Cholesterol Urine WBC (Auto) 04/07/21 04/08/21 05:40 16:56 WBC RBC MCV MCH MCHC RDW Plt Count Seg Neuts % (Manual) Lymphocytes % (Manual) Seg Neutrophils # Man PT INR Potassium BUN Glucose HDL Cholesterol 67 H Urine WBC (Auto) > 182.0 H Assessment and Plan Assessment and Plan # CVA (cerebral vascular accident) -pt. presented with a new onset left side weakness upper and lower with slurred speech -Hx of remote CVAX5 times as per pt. -Ct brain old lacunar infarct BG , with CTA showed -astherosclerotic changes at [place]. segment of ICA -MRI is pending -Echo is pending -LDL#54 -He is on ASA and plavix and lipitor -Pt/SP # Left hemiparesis -Physical therapy consulted, supportive care. # HTN (hypertension) -Monitor blood pressure every shift, permissive hypertension overnight. # DVT prophylaxis -SCD to bilateral lower extremities while in bed, patient is ambulatory. # Advance care planning -Disease education done, - care plan discussed, diagnosis discussed, prognosis discussed, patient knowledges understanding agree with care plan, patient is full code,
[2021-04-09] MEDS: cefTRIAXone/NS 1 GM/50 ML 1 GM/50 ML BAG IV SCH (12:20)
[2021-04-09] MEDS ORDERED: ALPRAZolam 0.25 MG TAB PO ONE (16:00)
--- NOTE | 2021-04-09 16:44 | Magnetic Resonance Report ---
MRI BRAIN 04/09/2021 INDICATION / CLINICAL INFORMATION: cva. TECHNIQUE: Multiplanar, multisequence MR images of the brain were obtained. COMPARISON: None available. FINDINGS: BRAIN / INTRACRANIAL CONTENTS: Unenhanced MR images of the brain demonstrate no evidence of acute int racranial abnormality. Ventricles and sulci are normal in size and shape for a patient of this age. Mild chronic white matter T2 weighted hyperintensities are noted. There is evidence of chronic ischemic change in the central and left toro and upper medulla. There is no evidence of acute ischemic injury within the brainstem. There are no abnormal extra-axial fluid collections. EXTRACRANIAL: Unremarkable CRANIOCERVICAL JUNCTION: No significant abnormality. VASCULAR FLOW-VOIDS: No significant abnormality. IMPRESSION: No acute abnormality. Chronic ischemic and age-related changes. Signer Name: Bob Ashley MD Signed: 04/09/2021 4:39 PM Workstation Name: [id number][id number]
[2021-04-09] MEDS: INSULIN LISPRO 100 UNIT/ML SUB-Q SCH (22:42)
[2021-04-10] MEDS ORDERED: hydrALAZINE 20 MG/1 ML INJ IV PRN (00:11)
[2021-04-10 05:48] LABS: Hematocrit 38.5 % (35.5-45.6); Hemoglobin 12.2 gm/dl (11.8-15.2); Mean Corpuscular HGB Conc 32 % (32-34); Red Blood Count 5.57 M/mm3 (3.65-5.03); Red Cell Distribution Width 15.8 % (13.2-15.2)
[2021-04-10 05:53] LABS: Mean Corpuscular Volume 69 fl (84-94)
[2021-04-10 06:04] LABS: BUN/Creatinine Ratio 19; Blood Urea Nitrogen 23 mg/dL (9-20); Calcium 9.4 mg/dL (8.4-10.2); Hemolysis Index 77
[2021-04-10 06:56] LABS: Band Neutrophils # (Manual) 0.1 K/mm3; Total Cells Counted 100
[2021-04-10 06:57] LABS: Anisocytosis Few; Giant Platelets Rare; Hypochromasia 1+; Ovalocytes Few; Platelet Count 103 K/mm3 (140-440); Platelet Estimate Consistent w Auto
[2021-04-10] MEDS: INSULIN LISPRO 100 UNIT/ML SUB-Q SCH ×4 (08:12→22:50)
[2021-04-10] MEDS: NIFEdipine XL 30 MG TAB PO SCH ×2 (09:56→22:50)
[2021-04-10] MEDS: ASPIRIN 325 MG TAB PO SCH (09:56)
[2021-04-10] MEDS: CLOPIDOGREL 75 MG TAB PO SCH (09:56)
--- NOTE | 2021-04-10 12:49 | Progress Note ---
Assessment and Plan Assessment and Plan # CVA (cerebral vascular accident) -pt. presented with a new onset left side weakness upper and lower with slurred speech -Hx of remote CVA X 5 times as per pt. -Ct brain old lacunar infarct BG , with CTA showed -astherosclerotic changes at [place]. segment of ICA -MRI is no acute event -Echo is pending -LDL#54 -He is on ASA and plavix and lipitor -Pt/SP -Unsteady gait # Left hemiparesis -Physical therapy consulted, supportive care. # HTN (hypertension) -Monitor blood pressure every shift, permissive hypertension overnight. # DVT prophylaxis -SCD to bilateral lower extremities while in bed, patient is ambulatory. # Advance care planning -Disease education done, - care plan discussed, diagnosis discussed, prognosis discussed, patient knowledges understanding agree with care plan, patient is full code, PLAN 1- As above 2- Review echo 3- Consider PT/Rehab. will sign off Subjective Date of service: 04/10/21 Principal diagnosis: off balance weakness ,Hx of CVA Interval history: According to pt. he is slightly better today MRI is with no acute event CTA with athersclerotic changes left ICA clenoid region Objective - Vital Sign Vital Signs - 12hr 04/10/21 04/10/21 04/10/21 03:28 06:43 09:32 Temperature 98.1 F 98.5 F Pulse Rate 73 89 Respiratory 16 17 Rate Blood Pressure 101/56 133/76 O2 Sat by Pulse 93 100 100 Oximetry - General Apperance Constitutional: comfortable - EENT EENT: PERRL, mucous membranes moist - Respiratory Respiratory: chest non-tender, lungs clear, rhonchi - Cardiovascular Cardiovascular: regular rate, normal S1, normal S2 Extremities: no peripheral edema bilat - Gastrointestinal Gastrointestinal: normoactive bowel sounds - Integumentary Integumentary: normal - Neurologic Cranial nerve examination: PERRL, EOMI, other (left facial droop and slurred speech) Detailed motor examination: other (left pronator drift ,gait not done ) - Laboratory Findings CBC and BMP: 04/10/21 05:11 04/10/21 05:11 Abnormal Lab Findings: Abnormal Labs 04/06/21 04/06/21 04/06/21 18:45 18:45 18:45 WBC 15.6 H RBC 5.77 H MCV 71 L MCH 22 L MCHC 31 L RDW 16.2 H Plt Count 102 L Seg Neuts % (Manual) 90.0 H Lymphocytes % (Manual) 8.0 L Monocytes % (Manual) Seg Neutrophils # Man 14.0 H Lymphocytes # (Manual) PT 15.4 H INR 1.16 H Sodium Potassium 3.5 L Chloride BUN 22 H Glucose 125 H POC Glucose HDL Cholesterol Urine WBC (Auto) 04/07/21 04/08/21 04/09/21 05:40 16:56 22:30 WBC RBC MCV MCH MCHC RDW Plt Count Seg Neuts % (Manual) Lymphocytes % (Manual) Monocytes % (Manual) Seg Neutrophils # Man Lymphocytes # (Manual) PT INR Sodium Potassium Chloride BUN Glucose POC Glucose 227 H HDL Cholesterol 67 H Urine WBC (Auto) > 182.0 H 04/10/21 04/10/21 04/10/21 05:11 05:11 07:38 WBC RBC 5.57 H MCV 69 L MCH 22 L MCHC RDW 15.8 H Plt Count 103 L Seg Neuts % (Manual) Lymphocytes % (Manual) Monocytes % (Manual) 16.0 H Seg Neutrophils # Man Lymphocytes # (Manual) 1.1 L PT INR Sodium 133 L D Potassium Chloride 96.4 L BUN 23 H Glucose 148 H POC Glucose 164 H HDL Cholesterol Urine WBC (Auto) 04/10/21 11:41 WBC RBC MCV MCH MCHC RDW Plt Count Seg Neuts % (Manual) Lymphocytes % (Manual) Monocytes % (Manual) Seg Neutrophils # Man Lymphocytes # (Manual) PT INR Sodium Potassium Chloride BUN Glucose POC Glucose 195 H HDL Cholesterol Urine WBC (Auto)
[2021-04-10] MEDS: cefTRIAXone/NS 1 GM/50 ML 1 GM/50 ML BAG IV SCH (14:48)
--- NOTE | 2021-04-10 15:17 | Progress Note ---
Assessment and Plan Assessment and plan: CVA Left hemiparesis Accelerated hypertension Sepsis. Present on admission. Patient with tachycardia, fever, leukocytosis and diagnosis of UTI. UTI Diabetes mellitus type 2 Diabetic neuropathy. 04/07/2021. CTA of the head revealed basilar artery with moderate to marked segmental narrowing of the mid to distal segment. There is also atherosclerotic calcification involving the distal internal carotid arteries with mild to moderate segmental narrowing. Echocardiogram is pending. PT/OT/ST. Neurology consultation. Continue aspirin, Plavix and Lipitor. Allow for permissive hypertension since admission. We will start low-dose Procardia for accelerated hypertension today. 04/08/2021. Blood pressure is better controlled but still elevated. Consider increasing Procardia. Patient with a fever of 101.8 last night and leukocytosis. No obvious source of infection. Check blood cultures, urinalysis, chest x-ray and monitor temperature curve. 04/09/2021. Patient still with low-grade fever 100.7. Chest x-ray was negative but urinalysis revealed greater than 182 WBCs. Start IV antibiotics of Rocephin for UTI. Follow-up blood and urine cultures. With regards to the CVA, await MRI and echocardiogram. Neurology consultation pending. Continue PT/OT/ST. 04/10/21 patient initially presented with left sided weakness, slurred speech. He has history of multiple strokes. MRI did not show any new abnormalities. 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 He has been started on Rocephin for UTI. History Interval history: Patient initially presented with left sided weakness, slurred speech Hospitalist Physical - Physical exam Narrative exam: Gen: Not in acute distress, lying in bed HEENT: Normochephalic, atraumatic Neck:supple, No JVD Lungs:Clear to auscultation bilaterally, no rales, no wheeze Heart:S1 and S2 reg, no murmurs, rubs or gallop Abd: soft, non tender, non distended, normal bowel sounds Ext: No edema, no clubbing, no cyanosis Neuro:Awake,alert,oriented X 3, slurred speech - Constitutional Vitals: Temp Pulse Resp BP Pulse Ox 98.5 F 89 17 133/76 100 04/10/21 06:43 04/10/21 06:43 04/10/21 06:43 04/10/21 06:43 04/10/21 09:32 General appearance: Present: no acute distress HEART Score - HEART Score Troponin: Troponin T 0.015 ng/mL (0.00-0.029) 04/06/21 18:45 Results - Labs CBC & Chem 7: 04/10/21 05:11 04/10/21 05:11 Labs: Laboratory Last Values WBC 4.8 K/mm3 (4.5-11.0) 04/10/21 05:11 RBC 5.57 M/mm3 (3.65-5.03) H 04/10/21 05:11 Hgb 12.2 gm/dl (11.8-15.2) 04/10/21 05:11 Hct 38.5 % (35.5-45.6) 04/10/21 05:11 MCV 69 fl (84-94) L 04/10/21 05:11 MCH 22 pg (28-32) L 04/10/21 05:11 MCHC 32 % (32-34) 04/10/21 05:11 RDW 15.8 % (13.2-15.2) H 04/10/21 05:11 Plt Count 103 K/mm3 (140-440) L 04/10/21 05:11 [place] % (Auto) Retort Unloader 04/10/21 05:11 Add Manual Diff Complete 04/10/21 05:11 Total Counted 100 04/10/21 05:11 Seg Neutrophils % Retort Unloader 04/06/21 18:45 Seg Neuts % (Manual) 58.0 % (40.0-70.0) 04/10/21 05:11 Band Neutrophils % 2.0 % 04/10/21 05:11 Lymphocytes % (Manual) 22.0 % (13.4-35.0) 04/10/21 05:11 Monocytes % (Manual) 16.0 % (0.0-7.3) H 04/10/21 05:11 Eosinophils % (Manual) 1.0 % (0.0-4.3) 04/10/21 05:11 Metamyelocytes % 1.0 % 04/10/21 05:11 Nucleated RBC % Not Reportable 04/10/21 05:11 Seg Neutrophils # Man 2.8 K/mm3 (1.8-7.7) 04/10/21 05:11 Band Neutrophils # 0.1 K/mm3 04/10/21 05:11 Lymphocytes # (Manual) 1.1 K/mm3 (1.2-5.4) L 04/10/21 05:11 Abs React Lymphs (Man) 0.0 K/mm3 04/10/21 05:11 Monocytes # (Manual) 0.8 K/mm3 (0.0-0.8) 04/10/21 05:11 Eosinophils # (Manual) 0.0 K/mm3 (0.0-0.4) 04/10/21 05:11 Basophils # (Manual) 0.0 K/mm3 (0.0-0.1) 04/10/21 05:11 Metamyelocytes # 0.0 K/mm3 04/10/21 05:11 Myelocytes # 0.0 K/mm3 04/10/21 05:11 Promyelocytes # 0.0 K/mm3 04/10/21 05:11 Blast Cells # 0.0 K/mm3 04/10/21 05:11 WBC Morphology Not Reportable 04/10/21 05:11 Hypersegmented Neuts Not Reportable 04/10/21 05:11 Hyposegmented Neuts Not Reportable 04/10/21 05:11 Hypogranular Neuts Not Reportable 04/10/21 05:11 Smudge Cells Not Reportable 04/10/21 05:11 Toxic Granulation Not Reportable 04/10/21 05:11 Toxic Vacuolation Not Reportable 04/10/21 05:11 Dohle Bodies Not Reportable 04/10/21 05:11 Pelger-Huet Anomaly Not Reportable 04/10/21 05:11 Chris Rods Not Reportable 04/10/21 05:11 Platelet Estimate Consistent w auto 04/10/21 05:11 Clumped Platelets Not Reportable 04/10/21 05:11 Plt Clumps, EDTA Not Reportable 04/10/21 05:11 Large Platelets Not Reportable 04/10/21 05:11 Giant Platelets Rare 04/10/21 05:11 Platelet Satelliting Not Reportable 04/10/21 05:11 Plt Morphology Comment Not Reportable 04/10/21 05:11 RBC Morphology Not Reportable 04/10/21 05:11 Dimorphic RBCs Not Reportable 04/10/21 05:11 Polychromasia Not Reportable 04/10/21 05:11 Hypochromasia 1+ 04/10/21 05:11 Poikilocytosis Not Reportable 04/10/21 05:11 Anisocytosis Few 04/10/21 05:11 Microcytosis 1+ 04/10/21 05:11 Macrocytosis Not Reportable 04/10/21 05:11 Spherocytes Not Reportable 04/10/21 05:11 Pappenheimer Bodies Not Reportable 04/10/21 05:11 Sickle Cells Not Reportable 04/10/21 05:11 Target Cells Not Reportable 04/10/21 05:11 Tear Drop Cells Not Reportable 04/10/21 05:11 Ovalocytes Few 04/10/21 05:11 Helmet Cells Not Reportable 04/10/21 05:11 Oliver-[place] Bodies Not Reportable 04/10/21 05:11 [place] Rings Not Reportable 04/10/21 05:11 Helio Cells Not Reportable 04/10/21 05:11 Bite Cells Not Reportable 04/10/21 05:11 Crenated Cell Not Reportable 04/10/21 05:11 Elliptocytes Not Reportable 04/10/21 05:11 Acanthocytes (Spur) Not Reportable 04/10/21 05:11 Rouleaux Not Reportable 04/10/21 05:11 Hemoglobin C Crystals Not Reportable 04/10/21 05:11 Schistocytes Not Reportable 04/10/21 05:11 Malaria parasites Not Reportable 04/10/21 05:11 Ronnell Bodies Not Reportable 04/10/21 05:11 Hem Pathologist Commnt No 04/10/21 05:11 PT 15.4 Sec. (12.2-14.9) H 04/06/21 18:45 INR 1.16 (0.87-1.13) H 04/06/21 18:45 APTT 26.0 Sec. (24.2-36.6) 04/06/21 18:45 Thrombin Time 16.7 Sec. (15.1-19.6) 04/06/21 18:45 Sodium 133 mmol/L (137-145) L D 04/10/21 05:11 Potassium 4.1 mmol/L (3.6-5.0) 04/10/21 05:11 Chloride 96.4 mmol/L (98-107) L 04/10/21 05:11 Carbon Dioxide 24 mmol/L (22-30) 04/10/21 05:11 Anion Gap 17 mmol/L 04/10/21 05:11 BUN 23 mg/dL (9-20) H 04/10/21 05:11 Creatinine 1.2 mg/dL (0.8-1.3) 04/10/21 05:11 Estimated GFR > 60 ml/min 04/10/21 05:11 BUN/Creatinine Ratio 19 % 04/10/21 05:11 Glucose 148 mg/dL (75-100) H 04/10/21 05:11 POC Glucose 195 mg/dL (70-105) H 04/10/21 11:41 Calcium 9.4 mg/dL (8.4-10.2) 04/10/21 05:11 Troponin T 0.015 ng/mL (0.00-0.029) 04/06/21 18:45 Triglycerides 80 mg/dL (2-149) 04/07/21 05:40 Cholesterol 131 mg/dL (50-199) 04/07/21 05:40 LDL Cholesterol Direct 54 mg/dL (50-130) 04/07/21 05:40 HDL Cholesterol 67 mg/dL (40-59) H 04/07/21 05:40 Cholesterol/HDL Ratio 1.95 % 04/07/21 05:40 Urine Color Yellow (Yellow) 04/08/21 16:56 Urine Turbidity Cloudy (Clear) 04/08/21 16:56 Urine pH 5.0 (5.0-7.0) 04/08/21 16:56 Ur Specific [place] 1.014 (1.003-1.030) 04/08/21 16:56 Urine Protein 100 mg/dl mg/dL (Negative) 04/08/21 16:56 Urine Glucose (UA) >=500 mg/dL (Negative) 04/08/21 16:56 Urine Ketones Neg mg/dL (Negative) 04/08/21 16:56 Urine Blood Mod (Negative) 04/08/21 16:56 Urine Nitrite Neg (Negative) 04/08/21 16:56 Urine Bilirubin Neg (Negative) 04/08/21 16:56 Urine Urobilinogen 2.0 mg/dL (<2.0) 04/08/21 16:56 Ur Leukocyte Esterase Lg (Negative) 04/08/21 16:56 Urine WBC (Auto) > 182.0 /HPF (0.0-6.0) H 04/08/21 16:56 Urine RBC (Auto) 13.0 /HPF (0.0-6.0) 04/08/21 16:56 U Epithel Cells (Auto) 1.0 /HPF (0-13.0) 04/08/21 16:56 Urine Bacteria (Auto) 2+ /HPF (Negative) 04/08/21 16:56 Urine WBC Clumps 2+ /HPF 04/08/21 16:56 Urine Mucus Few /HPF 04/08/21 16:56 Microbiology: Microbiology 04/08/21 13:58 Peripheral/Venous Blood Culture - Preliminary NO GROWTH AFTER 24 HOURS 04/08/21 13:58 Peripheral/Venous Blood Culture - Preliminary NO GROWTH AFTER 24 HOURS Streeter/IV: Voiding Method Urinal Active Medications - Current Medications Current Medications: Generic Name Dose Route Start Last Admin Trade Name Freq PRN Reason Stop Dose Admin Acetaminophen 650 mg 04/06/21 20:09 04/09/21 00:41 Acetaminophen 325 Mg Tab PO 650 mg Q4H PRN Administration Pain, Mild (1-3) Aspirin 325 mg 04/07/21 10:00 04/10/21 09:56 Aspirin 325 Mg Tab PO 325 mg QDAY ALDO Administration Atorvastatin Calcium 40 mg 04/06/21 22:00 04/09/21 21:59 Atorvastatin 40 Mg Tab PO 40 mg QHS ALDO Administration Bisacodyl 10 mg 04/06/21 20:09 Bisacodyl 10 Mg Rect Supp [place] QDAY PRN Constipation Clopidogrel Bisulfate 75 mg 04/07/21 10:00 04/10/21 09:56 Clopidogrel 75 Mg Tab PO 75 mg QDAY ALDO Administration Hydralazine HCl 10 mg 04/10/21 00:11 04/10/21 00:18 Hydralazine 20 Mg/1 Ml Inj IV 10 mg Q6H PRN Administration Blood Pressure Ceftriaxone Sodium 1 gm in 50 mls @ 100 mls/hr 04/09/21 10:00 04/10/21 14:48 Rocephin/Ns 1 Gm/50 Ml IV 100 mls/hr Q24H ALDO Administration Protocol Insulin Human Lispro 0 unit 04/09/21 23:30 04/09/21 22:42 Insulin Lispro 100 Unit/Ml SUB-Q 2 unit ACHS ALDO Administration Protocol Magnesium Hydroxide 30 ml 04/06/21 20:09 Magnesium Hydroxide (Mom) Oral Liqd Udc PO Q4H PRN Constipation Metoclopramide HCl 10 mg 04/06/21 20:09 04/08/21 14:54 Metoclopramide 10 Mg Tab PO 10 mg Q6H PRN Administration Nausea And Vomiting Nifedipine 30 mg 04/07/21 11:00 04/10/21 09:56 Nifedipine Xl 30 Mg Tab PO 30 mg Q12HR ALDO Administration Ondansetron HCl 4 mg 04/06/21 20:09 Ondansetron 4 Mg/2 Ml Inj IV Q8H PRN Nausea And Vomiting Promethazine HCl 25 mg 04/06/21 20:09 Promethazine 25 Mg Rect Supp [place] Q6H PRN Nausea And Vomiting Sodium Chloride 10 ml 04/06/21 20:09 Sodium Chloride 0.9% 10 Ml Flush Syringe IV PRN PRN LINE FLUSH
[2021-04-11] MEDS: INSULIN LISPRO 100 UNIT/ML SUB-Q SCH ×4 (11:08→22:00)
[2021-04-11] MEDS: NIFEdipine XL 30 MG TAB PO SCH ×2 (11:10→21:28)
[2021-04-11] MEDS: ASPIRIN 325 MG TAB PO SCH (11:10)
[2021-04-11] MEDS: cefTRIAXone/NS 1 GM/50 ML 1 GM/50 ML BAG IV SCH (11:11)
[2021-04-11] MEDS: CLOPIDOGREL 75 MG TAB PO SCH (11:11)
--- NOTE | 2021-04-11 14:06 | Progress Note ---
Assessment and Plan Assessment and plan: TIA Main diagnosis MRI Brain does not show acute stroke Left hemiparesis Accelerated hypertension Sepsis. Present on admission. Patient with tachycardia, fever, leukocytosis and diagnosis of UTI. UTI Diabetes mellitus type 2 Diabetic neuropathy. 04/07/2021. CTA of the head revealed basilar artery with moderate to marked segmental narrowing of the mid to distal segment. There is also atherosclerotic calcification involving the distal internal carotid arteries with mild to moderate segmental narrowing. Echocardiogram is pending. PT/OT/ST. Neurology consultation. Continue aspirin, Plavix and Lipitor. Allow for permissive hypertension since admission. We will start low-dose Procardia for accelerated hypertension today. 04/08/2021. Blood pressure is better controlled but still elevated. Consider increasing Procardia. Patient with a fever of 101.8 last night and leukocytosis. No obvious source of infection. Check blood cultures, urinalysis, chest x-ray and monitor temperature curve. 04/09/2021. Patient still with low-grade fever 100.7. Chest x-ray was negative but urinalysis revealed greater than 182 WBCs. Start IV antibiotics of Rocephin for UTI. Follow-up blood and urine cultures. With regards to the CVA, await MRI and echocardiogram. Neurology consultation pending. Continue PT/OT/ST. 04/10/21 Patient initially presented with left sided weakness, slurred speech. He has history of multiple strokes. MRI did not show any new abnormalities. 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 He has been started on Rocephin for UTI. 04/11/21 Patient initially presented with left sided weakness, slurred speech. MRI did not show an acute stroke. I discussed with Dr. Jackson, Neurology, and he states final diagnosis TIA since MRI Brain does not show new stroke. Awaiting Rehab placement. History Interval history: Patient initially presented with left sided weakness, slurred speech MRI Brain neg Hospitalist Physical - Physical exam Narrative exam: Gen: Not in acute distress, lying in bed HEENT: Normochephalic, atraumatic Neck:supple, No JVD Lungs:Clear to auscultation bilaterally, no rales, no wheeze Heart:S1 and S2 reg, no murmurs, rubs or gallop Abd: soft, non tender, non distended, normal bowel sounds Ext: No edema, no clubbing, no cyanosis Neuro:Awake,alert,oriented X 3, slurred speech - Constitutional Vitals: Temp Pulse Resp BP Pulse Ox 98.1 F 68 18 144/76 94 04/11/21 03:42 04/11/21 03:42 04/11/21 03:42 04/11/21 03:42 04/11/21 03:42 General appearance: Present: no acute distress HEART Score - HEART Score Troponin: Troponin T 0.015 ng/mL (0.00-0.029) 04/06/21 18:45 Results - Labs CBC & Chem 7: 04/10/21 05:11 04/10/21 05:11 Labs: Laboratory Last Values WBC 4.8 K/mm3 (4.5-11.0) 04/10/21 05:11 RBC 5.57 M/mm3 (3.65-5.03) H 04/10/21 05:11 Hgb 12.2 gm/dl (11.8-15.2) 04/10/21 05:11 Hct 38.5 % (35.5-45.6) 04/10/21 05:11 MCV 69 fl (84-94) L 04/10/21 05:11 MCH 22 pg (28-32) L 04/10/21 05:11 MCHC 32 % (32-34) 04/10/21 05:11 RDW 15.8 % (13.2-15.2) H 04/10/21 05:11 Plt Count 103 K/mm3 (140-440) L 04/10/21 05:11 [place] % (Auto) Hotel Breakfast Attendant 04/10/21 05:11 Add Manual Diff Complete 04/10/21 05:11 Total Counted 100 04/10/21 05:11 Seg Neutrophils % Hotel Breakfast Attendant 04/06/21 18:45 Seg Neuts % (Manual) 58.0 % (40.0-70.0) 04/10/21 05:11 Band Neutrophils % 2.0 % 04/10/21 05:11 Lymphocytes % (Manual) 22.0 % (13.4-35.0) 04/10/21 05:11 Monocytes % (Manual) 16.0 % (0.0-7.3) H 04/10/21 05:11 Eosinophils % (Manual) 1.0 % (0.0-4.3) 04/10/21 05:11 Metamyelocytes % 1.0 % 04/10/21 05:11 Nucleated RBC % Not Reportable 04/10/21 05:11 Seg Neutrophils # Man 2.8 K/mm3 (1.8-7.7) 04/10/21 05:11 Band Neutrophils # 0.1 K/mm3 04/10/21 05:11 Lymphocytes # (Manual) 1.1 K/mm3 (1.2-5.4) L 04/10/21 05:11 Abs React Lymphs (Man) 0.0 K/mm3 04/10/21 05:11 Monocytes # (Manual) 0.8 K/mm3 (0.0-0.8) 04/10/21 05:11 Eosinophils # (Manual) 0.0 K/mm3 (0.0-0.4) 04/10/21 05:11 Basophils # (Manual) 0.0 K/mm3 (0.0-0.1) 04/10/21 05:11 Metamyelocytes # 0.0 K/mm3 04/10/21 05:11 Myelocytes # 0.0 K/mm3 04/10/21 05:11 Promyelocytes # 0.0 K/mm3 04/10/21 05:11 Blast Cells # 0.0 K/mm3 04/10/21 05:11 WBC Morphology Not Reportable 04/10/21 05:11 Hypersegmented Neuts Not Reportable 04/10/21 05:11 Hyposegmented Neuts Not Reportable 04/10/21 05:11 Hypogranular Neuts Not Reportable 04/10/21 05:11 Smudge Cells Not Reportable 04/10/21 05:11 Toxic Granulation Not Reportable 04/10/21 05:11 Toxic Vacuolation Not Reportable 04/10/21 05:11 Dohle Bodies Not Reportable 04/10/21 05:11 Pelger-Huet Anomaly Not Reportable 04/10/21 05:11 Chris Rods Not Reportable 04/10/21 05:11 Platelet Estimate Consistent w auto 04/10/21 05:11 Clumped Platelets Not Reportable 04/10/21 05:11 Plt Clumps, EDTA Not Reportable 04/10/21 05:11 Large Platelets Not Reportable 04/10/21 05:11 Giant Platelets Rare 04/10/21 05:11 Platelet Satelliting Not Reportable 04/10/21 05:11 Plt Morphology Comment Not Reportable 04/10/21 05:11 RBC Morphology Not Reportable 04/10/21 05:11 Dimorphic RBCs Not Reportable 04/10/21 05:11 Polychromasia Not Reportable 04/10/21 05:11 Hypochromasia 1+ 04/10/21 05:11 Poikilocytosis Not Reportable 04/10/21 05:11 Anisocytosis Few 04/10/21 05:11 Microcytosis 1+ 04/10/21 05:11 Macrocytosis Not Reportable 04/10/21 05:11 Spherocytes Not Reportable 04/10/21 05:11 Pappenheimer Bodies Not Reportable 04/10/21 05:11 Sickle Cells Not Reportable 04/10/21 05:11 Target Cells Not Reportable 04/10/21 05:11 Tear Drop Cells Not Reportable 04/10/21 05:11 Ovalocytes Few 04/10/21 05:11 Helmet Cells Not Reportable 04/10/21 05:11 Oliver-Sabattus Bodies Not Reportable 04/10/21 05:11 [place] Rings Not Reportable 04/10/21 05:11 [place] Cells Not Reportable 04/10/21 05:11 Bite Cells Not Reportable 04/10/21 05:11 Crenated Cell Not Reportable 04/10/21 05:11 Elliptocytes Not Reportable 04/10/21 05:11 Acanthocytes (Spur) Not Reportable 04/10/21 05:11 Rouleaux Not Reportable 04/10/21 05:11 Hemoglobin C Crystals Not Reportable 04/10/21 05:11 Schistocytes Not Reportable 04/10/21 05:11 Malaria parasites Not Reportable 04/10/21 05:11 Ronnell Bodies Not Reportable 04/10/21 05:11 Hem Pathologist Commnt No 04/10/21 05:11 PT 15.4 Sec. (12.2-14.9) H 04/06/21 18:45 INR 1.16 (0.87-1.13) H 04/06/21 18:45 APTT 26.0 Sec. (24.2-36.6) 04/06/21 18:45 Thrombin Time 16.7 Sec. (15.1-19.6) 04/06/21 18:45 Sodium 133 mmol/L (137-145) L D 04/10/21 05:11 Potassium 4.1 mmol/L (3.6-5.0) 04/10/21 05:11 Chloride 96.4 mmol/L (98-107) L 04/10/21 05:11 Carbon Dioxide 24 mmol/L (22-30) 04/10/21 05:11 Anion Gap 17 mmol/L 04/10/21 05:11 BUN 23 mg/dL (9-20) H 04/10/21 05:11 Creatinine 1.2 mg/dL (0.8-1.3) 04/10/21 05:11 Estimated GFR > 60 ml/min 04/10/21 05:11 BUN/Creatinine Ratio 19 % 04/10/21 05:11 Glucose 148 mg/dL (75-100) H 04/10/21 05:11 POC Glucose 173 mg/dL (70-105) H 04/11/21 11:38 Calcium 9.4 mg/dL (8.4-10.2) 04/10/21 05:11 Troponin T 0.015 ng/mL (0.00-0.029) 04/06/21 18:45 Triglycerides 80 mg/dL (2-149) 04/07/21 05:40 Cholesterol 131 mg/dL (50-199) 04/07/21 05:40 LDL Cholesterol Direct 54 mg/dL (50-130) 04/07/21 05:40 HDL Cholesterol 67 mg/dL (40-59) H 04/07/21 05:40 Cholesterol/HDL Ratio 1.95 % 04/07/21 05:40 Urine Color Yellow (Yellow) 04/08/21 16:56 Urine Turbidity Cloudy (Clear) 04/08/21 16:56 Urine pH 5.0 (5.0-7.0) 04/08/21 16:56 Ur Specific [place] 1.014 (1.003-1.030) 04/08/21 16:56 Urine Protein 100 mg/dl mg/dL (Negative) 04/08/21 16:56 Urine Glucose (UA) >=500 mg/dL (Negative) 04/08/21 16:56 Urine Ketones Neg mg/dL (Negative) 04/08/21 16:56 Urine Blood Mod (Negative) 04/08/21 16:56 Urine Nitrite Neg (Negative) 04/08/21 16:56 Urine Bilirubin Neg (Negative) 04/08/21 16:56 Urine Urobilinogen 2.0 mg/dL (<2.0) 04/08/21 16:56 Ur Leukocyte Esterase Lg (Negative) 04/08/21 16:56 Urine WBC (Auto) > 182.0 /HPF (0.0-6.0) H 04/08/21 16:56 Urine RBC (Auto) 13.0 /HPF (0.0-6.0) 04/08/21 16:56 U Epithel Cells (Auto) 1.0 /HPF (0-13.0) 04/08/21 16:56 Urine Bacteria (Auto) 2+ /HPF (Negative) 04/08/21 16:56 Urine WBC Clumps 2+ /HPF 04/08/21 16:56 Urine Mucus Few /HPF 04/08/21 16:56 Microbiology: Microbiology 04/10/21 Unknown Urine,Clean Catch Urine Culture - Preliminary 04/08/21 13:58 Peripheral/Venous Blood Culture - Preliminary NO GROWTH AFTER 48 HOURS 04/08/21 13:58 Peripheral/Venous Blood Culture - Preliminary NO GROWTH AFTER 48 HOURS Streeter/IV: Voiding Method Urinal Active Medications - Current Medications Current Medications: Generic Name Dose Route Start Last Admin Trade Name Freq PRN Reason Stop Dose Admin Acetaminophen 650 mg 04/06/21 20:09 04/09/21 00:41 Acetaminophen 325 Mg Tab PO 650 mg Q4H PRN Administration Pain, Mild (1-3) Aspirin 325 mg 04/07/21 10:00 04/11/21 11:10 Aspirin 325 Mg Tab PO 325 mg QDAY ALDO Administration Atorvastatin Calcium 40 mg 04/06/21 22:00 04/10/21 22:50 Atorvastatin 40 Mg Tab PO 40 mg QHS ALDO Administration Bisacodyl 10 mg 04/06/21 20:09 Bisacodyl 10 Mg Rect Supp MD QDAY PRN Constipation Clopidogrel Bisulfate 75 mg 04/07/21 10:00 04/11/21 11:11 Clopidogrel 75 Mg Tab PO 75 mg QDAY ALDO Administration Hydralazine HCl 10 mg 04/10/21 00:11 04/10/21 00:18 Hydralazine 20 Mg/1 Ml Inj IV 10 mg Q6H PRN Administration Blood Pressure Ceftriaxone Sodium 1 gm in 50 mls @ 100 mls/hr 04/09/21 10:00 04/11/21 11:11 Rocephin/Ns 1 Gm/50 Ml IV 04/15/21 10:29 100 mls/hr Q24H ALDO Administration Protocol Insulin Human Lispro 0 unit 04/09/21 23:30 04/11/21 12:32 Insulin Lispro 100 Unit/Ml SUB-Q 2 unit ACHS [facility] Administration Protocol Magnesium Hydroxide 30 ml 04/06/21 20:09 Magnesium Hydroxide (Mom) Oral Liqd Udc PO Q4H PRN Constipation Metoclopramide HCl 10 mg 04/06/21 20:09 04/08/21 14:54 Metoclopramide 10 Mg Tab PO 10 mg Q6H PRN Administration Nausea And Vomiting Nifedipine 30 mg 04/07/21 11:00 04/11/21 11:10 Nifedipine Xl 30 Mg Tab PO 30 mg Q12HR ALDO Administration Ondansetron HCl 4 mg 04/06/21 20:09 Ondansetron 4 Mg/2 Ml Inj IV Q8H PRN Nausea And Vomiting Promethazine HCl 25 mg 04/06/21 20:09 Promethazine 25 Mg Rect Supp MD Q6H PRN Nausea And Vomiting Sodium Chloride 10 ml 04/06/21 20:09 Sodium Chloride 0.9% 10 Ml Flush Syringe IV PRN PRN LINE FLUSH
--- NOTE | 2021-04-12 08:42 | Vascular Lab Report ---
DUPLEX DOPPLER ULTRASOUND CAROTID, BILATERAL INDICATION / CLINICAL INFORMATION: stroke. COMPARISON: None available. FINDINGS: RIGHT CAROTID: Minimal smooth partially calcified plaque is noted in the right carotid bulb. - PLAQUE ESTIMATE (%): < 50% - CCA velocity: 43 cm/sec. - ICA peak systolic velocity: 69 cm/sec. - ICA/CCA PSV Ratio: 1.6 Right Vertebral Artery: Antegrade flow. LEFT CAROTID: Minimal smooth partially calcified plaque is noted in the carotid bulb. - PLAQUE ESTIMATE (%): < 50% - CCA velocity: 46 cm/sec. - ICA peak systolic velocity: 78 cm/sec. - ICA/CCA PSV Ratio: 1.7 Left Vertebral Artery: Antegrade flow. IMPRESSION: 1. Right Internal Carotid Artery: Less than 50% diameter stenosis. 2. Left Internal Carotid Artery: Less than 50% diameter stenosis. Velocity criteria are extrapolated from diameter data as defined by the Society of Radiologists in Ul trasound Consensus Conference, Radiology 2003; 229;340-346. NO STENOSIS (NORMAL) - Plaque = none; ICA PSV < 125 cm/sec; ICA/CCA PSV Ratio < 2.0 <50% STENOSIS - Plaque < 50%; ICA PSV < 125 cm/sec; ICA/CCA PSV Ratio < 2.0 50-69% STENOSIS - Plaque > 50%; ICA PSV = 125-230 cm/sec; ICA/CCA PSV Ratio = 2.0-4.0 >70% BUT <100% STENOSIS - Plaque > 50%; ICA PSV > 230 cm/sec; ICA/CCA PSV Ratio > 4.0 NEAR OCCLUSION - Plaque = visible lumen; ICA PSV = high/low/none; ICA/CCA PSV Ratio = variable TOTAL OCCLUSION - Plaque = no lumen; ICA PSV = none; ICA/CCA PSV Ratio = N/A Signer Name: Demario Alexandre Jr, MD Signed: 04/12/2021 8:38 AM Workstation Name: [id number]
[2021-04-12] MEDS: INSULIN LISPRO 100 UNIT/ML SUB-Q SCH ×3 (09:03→17:40)
[2021-04-12] MEDS: ASPIRIN 325 MG TAB PO SCH (09:52)
[2021-04-12] MEDS: CLOPIDOGREL 75 MG TAB PO SCH (09:52)
[2021-04-12] MEDS: NIFEdipine XL 30 MG TAB PO SCH ×2 (09:53→21:11)
[2021-04-12] MEDS: ACETAMINOPHEN 325 MG TAB PO PRN ×2 (10:06→21:10)
[2021-04-12] MEDS: cefTRIAXone/NS 1 GM/50 ML 1 GM/50 ML BAG IV SCH (10:06)
--- NOTE | 2021-04-12 12:38 | Electrocardiograph Report ---
[facility] Test Date: 2021-04-06 Test Time: 19:50:04 Pat Name: AINSLEY LANDIN Department: Room: A484 1 Gender: M Nurse Healthcare Manager: NATHAN : 1950 Requested By: SAM JACKSON III Order Number: [id number] Reading MD: Aníbal Slade Measurements Intervals [place] Rate: 82 P: 74 MO: 191 QRS: -24 QRSD: 89 T: 20 QT: 354 QTc: 414 Interpretive Statements Sinus rhythm No previous ECG available for comparison Electronically Signed On 04-12-2021 12:38:26 EDT by Aníbal Slade
--- NOTE | 2021-04-12 12:48 | Progress Note ---
Assessment and Plan Assessment and plan: TIA Main diagnosis MRI Brain does not show acute stroke Left hemiparesis Accelerated hypertension Sepsis. Present on admission. Patient with tachycardia, fever, leukocytosis and diagnosis of UTI. UTI Diabetes mellitus type 2 Diabetic neuropathy. 04/07/2021. CTA of the head revealed basilar artery with moderate to marked segmental narrowing of the mid to distal segment. There is also atherosclerotic calcification involving the distal internal carotid arteries with mild to moderate segmental narrowing. Echocardiogram is pending. PT/OT/ST. Neurology consultation. Continue aspirin, Plavix and Lipitor. Allow for permissive hypertension since admission. We will start low-dose Procardia for accelerated hypertension today. 04/08/2021. Blood pressure is better controlled but still elevated. Consider increasing Procardia. Patient with a fever of 101.8 last night and leukocytosis. No obvious source of infection. Check blood cultures, urinalysis, chest x-ray and monitor temperature curve. 04/09/2021. Patient still with low-grade fever 100.7. Chest x-ray was negative but urinalysis revealed greater than 182 WBCs. Start IV antibiotics of Rocephin for UTI. Follow-up blood and urine cultures. With regards to the CVA, await MRI and echocardiogram. Neurology consultation pending. Continue PT/OT/ST. 04/10/21 Patient initially presented with left sided weakness, slurred speech. He has history of multiple strokes. MRI did not show any new abnormalities. 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 He has been started on Rocephin for UTI. 04/11/21 Patient initially presented with left sided weakness, slurred speech. MRI did not show an acute stroke. I discussed with Dr. Jackson, Neurology, and he states final diagnosis TIA since MRI Brain does not show new stroke. Awaiting Rehab placement. 04/12/21 Patient initially presented with left sided weakness, slurred speech. M RI did not show an acute stroke. Patient with TIA but history of multiple strokes. He is still awaiting Acute Rehab placement. History Interval history: Patient initially presented with left sided weakness, slurred speech MRI Brain neg Hospitalist Physical - Physical exam Narrative exam: Gen: Not in acute distress, lying in bed HEENT: Normochephalic, atraumatic Neck:supple, No JVD Lungs:Clear to auscultation bilaterally, no rales, no wheeze Heart:S1 and S2 reg, no murmurs, rubs or gallop Abd: soft, non tender, non distended, normal bowel sounds Ext: No edema, no clubbing, no cyanosis Neuro:Awake,alert,oriented X 3, slurred speech - Constitutional Vitals: Temp Pulse Resp BP Pulse Ox 98.6 F 75 18 127/83 94 04/12/21 11:12 04/12/21 11:12 04/12/21 11:12 04/12/21 11:12 04/12/21 11:12 General appearance: Present: no acute distress HEART Score - HEART Score Troponin: Troponin T 0.015 ng/mL (0.00-0.029) 04/06/21 18:45 Results - Labs CBC & Chem 7: 04/10/21 05:11 04/10/21 05:11 Labs: Laboratory Last Values WBC 4.8 K/mm3 (4.5-11.0) 04/10/21 05:11 RBC 5.57 M/mm3 (3.65-5.03) H 04/10/21 05:11 Hgb 12.2 gm/dl (11.8-15.2) 04/10/21 05:11 Hct 38.5 % (35.5-45.6) 04/10/21 05:11 MCV 69 fl (84-94) L 04/10/21 05:11 MCH 22 pg (28-32) L 04/10/21 05:11 MCHC 32 % (32-34) 04/10/21 05:11 RDW 15.8 % (13.2-15.2) H 04/10/21 05:11 Plt Count 103 K/mm3 (140-440) L 04/10/21 05:11 [place] % (Auto) Yarn Examiner Skeins 04/10/21 05:11 Add Manual Diff Complete 04/10/21 05:11 Total Counted 100 04/10/21 05:11 Seg Neutrophils % Yarn Examiner Skeins 04/06/21 18:45 Seg Neuts % (Manual) 58.0 % (40.0-70.0) 04/10/21 05:11 Band Neutrophils % 2.0 % 04/10/21 05:11 Lymphocytes % (Manual) 22.0 % (13.4-35.0) 04/10/21 05:11 Monocytes % (Manual) 16.0 % (0.0-7.3) H 04/10/21 05:11 Eosinophils % (Manual) 1.0 % (0.0-4.3) 04/10/21 05:11 Metamyelocytes % 1.0 % 04/10/21 05:11 Nucleated RBC % Not Reportable 04/10/21 05:11 Seg Neutrophils # Man 2.8 K/mm3 (1.8-7.7) 04/10/21 05:11 Band Neutrophils # 0.1 K/mm3 04/10/21 05:11 Lymphocytes # (Manual) 1.1 K/mm3 (1.2-5.4) L 04/10/21 05:11 Abs React Lymphs (Man) 0.0 K/mm3 04/10/21 05:11 Monocytes # (Manual) 0.8 K/mm3 (0.0-0.8) 04/10/21 05:11 Eosinophils # (Manual) 0.0 K/mm3 (0.0-0.4) 04/10/21 05:11 Basophils # (Manual) 0.0 K/mm3 (0.0-0.1) 04/10/21 05:11 Metamyelocytes # 0.0 K/mm3 04/10/21 05:11 Myelocytes # 0.0 K/mm3 04/10/21 05:11 Promyelocytes # 0.0 K/mm3 04/10/21 05:11 Blast Cells # 0.0 K/mm3 04/10/21 05:11 WBC Morphology Not Reportable 04/10/21 05:11 Hypersegmented Neuts Not Reportable 04/10/21 05:11 Hyposegmented Neuts Not Reportable 04/10/21 05:11 Hypogranular Neuts Not Reportable 04/10/21 05:11 Smudge Cells Not Reportable 04/10/21 05:11 Toxic Granulation Not Reportable 04/10/21 05:11 Toxic Vacuolation Not Reportable 04/10/21 05:11 Dohle Bodies Not Reportable 04/10/21 05:11 Pelger-Huet Anomaly Not Reportable 04/10/21 05:11 Chris Rods Not Reportable 04/10/21 05:11 Platelet Estimate Consistent w auto 04/10/21 05:11 Clumped Platelets Not Reportable 04/10/21 05:11 Plt Clumps, EDTA Not Reportable 04/10/21 05:11 Large Platelets Not Reportable 04/10/21 05:11 Giant Platelets Rare 04/10/21 05:11 Platelet Satelliting Not Reportable 04/10/21 05:11 Plt Morphology Comment Not Reportable 04/10/21 05:11 RBC Morphology Not Reportable 04/10/21 05:11 Dimorphic RBCs Not Reportable 04/10/21 05:11 Polychromasia Not Reportable 04/10/21 05:11 Hypochromasia 1+ 04/10/21 05:11 Poikilocytosis Not Reportable 04/10/21 05:11 Anisocytosis Few 04/10/21 05:11 Microcytosis 1+ 04/10/21 05:11 Macrocytosis Not Reportable 04/10/21 05:11 Spherocytes Not Reportable 04/10/21 05:11 Pappenheimer Bodies Not Reportable 04/10/21 05:11 Sickle Cells Not Reportable 04/10/21 05:11 Target Cells Not Reportable 04/10/21 05:11 Tear Drop Cells Not Reportable 04/10/21 05:11 Ovalocytes Few 04/10/21 05:11 Helmet Cells Not Reportable 04/10/21 05:11 [place] Bodies Not Reportable 04/10/21 05:11 [place] Rings Not Reportable 04/10/21 05:11 [place] Cells Not Reportable 04/10/21 05:11 Bite Cells Not Reportable 04/10/21 05:11 Crenated Cell Not Reportable 04/10/21 05:11 Elliptocytes Not Reportable 04/10/21 05:11 Acanthocytes (Spur) Not Reportable 04/10/21 05:11 Rouleaux Not Reportable 04/10/21 05:11 Hemoglobin C Crystals Not Reportable 04/10/21 05:11 Schistocytes Not Reportable 04/10/21 05:11 Malaria parasites Not Reportable 04/10/21 05:11 Ronnell Bodies Not Reportable 04/10/21 05:11 Hem Pathologist Commnt No 04/10/21 05:11 PT 15.4 Sec. (12.2-14.9) H 04/06/21 18:45 INR 1.16 (0.87-1.13) H 04/06/21 18:45 APTT 26.0 Sec. (24.2-36.6) 04/06/21 18:45 Thrombin Time 16.7 Sec. (15.1-19.6) 04/06/21 18:45 Sodium 133 mmol/L (137-145) L D 04/10/21 05:11 Potassium 4.1 mmol/L (3.6-5.0) 04/10/21 05:11 Chloride 96.4 mmol/L (98-107) L 04/10/21 05:11 Carbon Dioxide 24 mmol/L (22-30) 04/10/21 05:11 Anion Gap 17 mmol/L 04/10/21 05:11 BUN 23 mg/dL (9-20) H 04/10/21 05:11 Creatinine 1.2 mg/dL (0.8-1.3) 04/10/21 05:11 Estimated GFR > 60 ml/min 04/10/21 05:11 BUN/Creatinine Ratio 19 % 04/10/21 05:11 Glucose 148 mg/dL (75-100) H 04/10/21 05:11 POC Glucose 169 mg/dL (70-105) H 04/12/21 07:49 Calcium 9.4 mg/dL (8.4-10.2) 04/10/21 05:11 Troponin T 0.015 ng/mL (0.00-0.029) 04/06/21 18:45 Triglycerides 80 mg/dL (2-149) 04/07/21 05:40 Cholesterol 131 mg/dL (50-199) 04/07/21 05:40 LDL Cholesterol Direct 54 mg/dL (50-130) 04/07/21 05:40 HDL Cholesterol 67 mg/dL (40-59) H 04/07/21 05:40 Cholesterol/HDL Ratio 1.95 % 04/07/21 05:40 Urine Color Yellow (Yellow) 04/08/21 16:56 Urine Turbidity Cloudy (Clear) 04/08/21 16:56 Urine pH 5.0 (5.0-7.0) 04/08/21 16:56 Ur Specific [place] 1.014 (1.003-1.030) 04/08/21 16:56 Urine Protein 100 mg/dl mg/dL (Negative) 04/08/21 16:56 Urine Glucose (UA) >=500 mg/dL (Negative) 04/08/21 16:56 Urine Ketones Neg mg/dL (Negative) 04/08/21 16:56 Urine Blood Mod (Negative) 04/08/21 16:56 Urine Nitrite Neg (Negative) 04/08/21 16:56 Urine Bilirubin Neg (Negative) 04/08/21 16:56 Urine Urobilinogen 2.0 mg/dL (<2.0) 04/08/21 16:56 Ur Leukocyte Esterase Lg (Negative) 04/08/21 16:56 Urine WBC (Auto) > 182.0 /HPF (0.0-6.0) H 04/08/21 16:56 Urine RBC (Auto) 13.0 /HPF (0.0-6.0) 04/08/21 16:56 U Epithel Cells (Auto) 1.0 /HPF (0-13.0) 04/08/21 16:56 Urine Bacteria (Auto) 2+ /HPF (Negative) 04/08/21 16:56 Urine WBC Clumps 2+ /HPF 04/08/21 16:56 Urine Mucus Few /HPF 04/08/21 16:56 Microbiology: Microbiology 04/10/21 Unknown Urine,Clean Catch Urine Culture - Final 04/08/21 13:58 Peripheral/Venous Blood Culture - Preliminary NO GROWTH AFTER 72 HOURS 04/08/21 13:58 Peripheral/Venous Blood Culture - Preliminary NO GROWTH AFTER 72 HOURS Streeter/IV: Voiding Method Urinal Active Medications - Current Medications Current Medications: Generic Name Dose Route Start Last Admin Trade Name Freq PRN Reason Stop Dose Admin Acetaminophen 650 mg 04/06/21 20:09 04/12/21 10:06 Acetaminophen 325 Mg Tab PO 650 mg Q4H PRN Administration Pain, Mild (1-3) Aspirin 325 mg 04/07/21 10:00 04/12/21 09:52 Aspirin 325 Mg Tab PO 325 mg QDAY ALDO Administration Atorvastatin Calcium 40 mg 04/06/21 22:00 04/11/21 21:28 Atorvastatin 40 Mg Tab PO 40 mg QHS ALDO Administration Bisacodyl 10 mg 04/06/21 20:09 Bisacodyl 10 Mg Rect Supp [place] QDAY PRN Constipation Clopidogrel Bisulfate 75 mg 04/07/21 10:00 04/12/21 09:52 Clopidogrel 75 Mg Tab PO 75 mg QDAY ALDO Administration Hydralazine HCl 10 mg 04/10/21 00:11 04/10/21 00:18 Hydralazine 20 Mg/1 Ml Inj IV 10 mg Q6H PRN Administration Blood Pressure Ceftriaxone Sodium 1 gm in 50 mls @ 100 mls/hr 04/09/21 10:00 04/12/21 10:06 Rocephin/Ns 1 Gm/50 Ml IV 04/15/21 10:29 100 mls/hr Q24H ALDO Administration Protocol Insulin Human Lispro 0 unit 04/09/21 23:30 04/12/21 12:27 Insulin Lispro 100 Unit/Ml SUB-Q 2 unit ACHS ALDO Administration Protocol Magnesium Hydroxide 30 ml 04/06/21 20:09 Magnesium Hydroxide (Mom) Oral Liqd Udc PO Q4H PRN Constipation Metoclopramide HCl 10 mg 04/06/21 20:09 04/08/21 14:54 Metoclopramide 10 Mg Tab PO 10 mg Q6H PRN Administration Nausea And Vomiting Nifedipine 30 mg 04/07/21 11:00 04/12/21 09:53 Nifedipine Xl 30 Mg Tab PO 30 mg Q12HR ALDO Administration Ondansetron HCl 4 mg 04/06/21 20:09 Ondansetron 4 Mg/2 Ml Inj IV Q8H PRN Nausea And Vomiting Promethazine HCl 25 mg 04/06/21 20:09 Promethazine 25 Mg Rect Supp [place] Q6H PRN Nausea And Vomiting Sodium Chloride 10 ml 04/06/21 20:09 04/12/21 09:53 Sodium Chloride 0.9% 10 Ml Flush Syringe IV 10 ml PRN PRN Administration LINE FLUSH
--- NOTE | 2021-04-12 14:29 | Discharge Summary ---
Providers - Providers Date of Admission: 04/08/21 09:31 Date of discharge: 04/12/21 Attending physician: SAYDA ROBLES 04/06/21 20:09 Occupational Therapy Evaluate and Treat [CONS] Routine Comment: Reason For Exam: Neuro deficits Physical Therapy Evaluation and Treat [CONS] Routine Comment: Reason For Exam: Neuro deficits 04/06/21 20:13 Speech Therapy Evaluation and Treat [CONS] Routine Reason For Exam: cva 04/07/21 09:49 Consult to Physician [CONS] Routine Comment: Consulting Provider: NANCY COLEMAN Physician Instructions: Reason For Exam: CVA 04/09/21 09:38 Consult to Physician [CONS] Routine Comment: Consulting Provider: PHAM NICE Physician Instructions: Reason For Exam: cva Primary care physician: GRAB SETTER Hospitalization Condition: Stable Hospital course: 70 YO Male with HTN, CVA, DM complicated by Peripheral Neuropathy presents to ED for evaluation. Patient reports "I feel weak on my left side". Patient states that he was in his usual state of health around 1300 hrs. Patient states that he experienced a sudden onset of left-sided weakness, slurred speech, and confusion. EMS was notified and upon arrival the patient was found to be in distress with a focal neurologic deficit. A code stroke was called and the patient was transported to [facility] for further care and evaluation of the aforementioned symptoms. The patient was seen and evaluated in the emergency department. All lab and image studies reviewed. Patient found to have clinical symptoms consistent with CVA. Patient placed in observation status and admitted to telemetry and initiated on CVA protocol. Patient denies fever, chills, chest pain, palpitation, productive cough, skin rash, recent ill contacts, known exposure to COVID-19. He was admitted. MRI Brain did not show new stroke so main diagnosis is transient ischemic attack. He was evaluated by Neurology. Patient going to acute rehab because of previous multiple strokes. Patient had sepsis due to UTI treated with Antibiotic. TIA Main diagnosis MRI Brain does not show acute stroke Left hemiparesis Accelerated hypertension Sepsis. Present on admission. Patient with tachycardia, fever, leukocytosis and diagnosis of UTI. UTI Diabetes mellitus type 2 Diabetic neuropathy. 04/07/2021. CTA of the head revealed basilar artery with moderate to marked segmental narrowing of the mid to distal segment. There is also atherosclerotic calcification involving the distal internal carotid arteries with mild to moderate segmental narrowing. Echocardiogram is pending. PT/OT/ST. Neurology consultation. Continue aspirin, Plavix and Lipitor. Allow for permissive hypertension since admission. We will start low-dose Procardia for accelerated hypertension today. 04/08/2021. Blood pressure is better controlled but still elevated. Consider increasing Procardia. Patient with a fever of 101.8 last night and leukocytosis. No obvious source of infection. Check blood cultures, urinalysis, chest x-ray and monitor temperature curve. 04/09/2021. Patient still with low-grade fever 100.7. Chest x-ray was negative but urinalysis revealed greater than 182 WBCs. Start IV antibiotics of Rocephin for UTI. Follow-up blood and urine cultures. With regards to the CVA, await MRI and echocardiogram. Neurology consultation pending. Continue PT/OT/ST. 04/10/21 Patient initially presented with left sided weakness, slurred speech. He has history of multiple strokes. MRI did not show any new abnormalities. 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 He has been started on Rocephin for UTI. 04/11/21 Patient initially presented with left sided weakness, slurred speech. MRI did not show an acute stroke. I discussed with Dr. Jackson, Neurology, and he states final diagnosis TIA since MRI Brain does not show new stroke. Awaiting Rehab placement. 04/12/21 Patient initially presented with left sided weakness, slurred speech. MRI did not show an acute stroke. Patient with TIA but history of multiple strokes. He is still awaiting Acute Rehab placement. Disposition: [id number] Final Discharge Diagnosis (Prints w/discharge instructions): 1.Transient Ischemic Attack. 2.History of multiple strokes. 3.Sepsis - Discharge Diagnoses (1) TIA (transient ischemic attack) Status: Acute (2) HTN (hypertension) Status: Chronic Qualifiers: Hypertension type: essential hypertension (3) History of multiple strokes Status: Acute (4) Sepsis Status: Acute Comment: due to UTI (5) UTI (urinary tract infection) Status: Acute Core Measure Documentation - Palliative Care Palliative Care/ Comfort Measures: Not Applicable - Core Measures Any of the following diagnoses?: none Exam - Constitutional Vitals: Temp Pulse Resp BP Pulse Ox 98.6 F 75 18 127/83 94 04/12/21 11:12 04/12/21 11:12 04/12/21 11:12 04/12/21 11:12 04/12/21 11:12 Plan Activity: advance as tolerated Diet: low fat, low cholesterol, low salt Plan of Treatment: 1.Follow up with PCP within 1 week of discharge Follow up with: PRIMARY CARE, [Primary Care Provider] - 3-5 Days
[2021-04-12 19:50] VITALS: BP 139/84
== END 2021-04-12 21:36 | DRG 872 ==
LOC: ED 18:04 → OBSVTOIN 20:09 → INTOOBSV 20:09 → 4A 20:09 → OBSVTOIN 04-08 09:31
PROVIDERS: ADMIT Internal Medicine; ATTEND Internal Medicine
DX: A41.9 Sepsis, unspecified organism (principal); G81.94 Hemiplegia, unspecified affecting left nondominant side; N39.0 Urinary tract infection, site not specified; G45.9 Transient cerebral ischemic attack, unspecified; Z20.822 Contact with and (suspected) exposure to COVID-19; R41.841 Cognitive communication deficit; R47.81 Slurred speech; I10 Essential (primary) hypertension; E11.40 Type 2 diabetes mellitus with diabetic neuropathy, unspecified; Z82.49 Family history of ischemic heart disease and other diseases of the circulatory system; Z83.3 Family history of diabetes mellitus; Z79.899 Other long term (current) drug therapy; Z79.82 Long term (current) use of aspirin
CPT/HCPCS: 36415; 70450; 70496; 70498; 70551; 71045; 80048; 80061; 81001; 82962; 84484; 85007; 85025; 85610; 85670; 85730; 87040; 87086; 93005; 93306; 93880; G0378; J0360; J0696; J1815; J3370; Q9967; U0003

== ENCOUNTER 2021-04-12 14:48 | Inpatient (IN) | payer MEDICARE ==
[2021-04-12] MEDS ORDERED: DEXTROSE 50% IN WATER (25GM) 50 ML SYRINGE IV PRN (17:28)
[2021-04-12] MEDS ORDERED: POLYETHYLENE GLYCOL 3350 17 GM POWDER PO PRN (17:32)
[2021-04-12] MEDS ORDERED: ALBUTEROL 2.5 MG/3 ML NEBU IH PRN (17:32)
[2021-04-12] MEDS ORDERED: ONDANSETRON 4 MG ODT TAB PO PRN (17:32)
[2021-04-12] MEDS ORDERED: hydrALAZINE 20 MG/1 ML INJ IV PRN (17:32)
[2021-04-12] MEDS ORDERED: ACETAMINOPHEN 325 MG TAB PO PRN (17:32)
[2021-04-12] MEDS: NIFEdipine XL 30 MG TAB PO SCH (23:20)
[2021-04-12] MEDS: INSULIN LISPRO 100 UNIT/ML SUB-Q SCH (23:59)
[2021-04-12] MEDS: HEPARIN 5,000 UNIT/1 ML VIAL SUB-Q SCH (23:59)
[2021-04-13 07:57] LABS: Basophils % (Auto) 0.6 % (0.0-1.8); Eosinophils # (Auto) 0.1 K/mm3 (0.0-0.4); Hematocrit 37.8 % (35.5-45.6); Hemoglobin 12.2 gm/dl (11.8-15.2); Lymphocytes # (Auto) 1.5 K/mm3 (1.2-5.4); Lymphocytes % (Auto) 27.3 % (13.4-35.0); Mean Corpuscular HGB Conc 32 % (32-34); Monocytes # (Auto) 0.6 K/mm3 (0.0-0.8); Monocytes % (Auto) 10.7 % (0.0-7.3); Platelet Count 154 K/mm3 (140-440); Red Blood Count 5.45 M/mm3 (3.65-5.03); Red Cell Distribution Width 15.9 % (13.2-15.2)
[2021-04-13] MEDS ORDERED: ASPIRIN EC 325 MG TAB PO SCH (08:00)
[2021-04-13] MEDS ORDERED: CLOPIDOGREL 75 MG TAB PO SCH (08:00)
[2021-04-13 08:06] LABS: Alanine Aminotransferase 28 units/L (7-56); BUN/Creatinine Ratio 16; Blood Urea Nitrogen 18 mg/dL (9-20); Calcium 9.3 mg/dL (8.4-10.2); Hemolysis Index 2
[2021-04-13 08:09] LABS: Mean Corpuscular Volume 69 fl (84-94)
[2021-04-13] MEDS: INSULIN LISPRO 100 UNIT/ML SUB-Q SCH ×3 (09:07→23:50)
[2021-04-13] MEDS ORDERED: cefTRIAXone/NS 1 GM/50 ML 1 GM/50 ML BAG IV SCH (10:00)
--- NOTE | 2021-04-13 10:20 | History and Physical Report ---
History of Present Illness Date: 04/13/21 Date of admission: 04/12/21 21:52 Chief Complaint: CVA History of present illness: 70-year-old male with a prior history of 4 strokes per the patient and residual left-sided weakness presented to the hospital on 04/06 with increased weakness and facial droop. He was found by his son slumped over in his chair. Neurology was consulted and requested further work-up including MRI brain, CTA head and neck and labs along with therapy evaluations. Initial CT head showed microvascular angiopathy without CT evidence of acute intracranial hemorrhage. CTA head neck showed irregularity of the basilar artery with moderate to marked segmental narrowing, atherosclerotic calcification involving the distal internal carotid artery with mild to moderate segmental narrowing, diffuse irregularity of the intracranial vessels and mild atherosclerotic plaque involving the carotid bifurcation without significant stenosis. MRI brain showed chronic ischemic and age-related changes without evidence of acute ischemic injury. Patient had some improvement with function however was still having difficulty with left-sided hemiparesis, balance that he states is worse than the previously. Patient likely had TIA with some exacerbation of symptoms from prior strokes. He was also found to be septic and was treated for a UTI. He also had accelerated hypertension which was also treated prior to being admitted to the acute inpatient rehab unit. After the patient was medically stabilized they were transferred for further rehabilitation. All available medical records have been reviewed. Plan of care was discussed with patient and family. Past History Past Medical History: diabetes, hypertension, stroke Past Surgical History: No surgical history Social history: , lives with family. denies: smoking, alcohol abuse, IV drug use Family history: CAD, diabetes, hypertension Medications and Allergies Allergies Allergy/AdvReac Type Severity Reaction Status Date / Time No Known Allergies Allergy Verified 06/12/17 04:37 Home Medications Medication Instructions Recorded Confirmed Last Taken Type AtorvaSTATin [Lipitor] 40 mg PO QHS 04/08/21 04/08/21 Unknown History Clopidogrel [Plavix] 75 mg PO QDAY 04/08/21 04/08/21 Unknown History Gabapentin 400 mg PO Q8HR 04/08/21 04/08/21 Unknown History Losartan [Cozaar] 100 mg PO QDAY 04/08/21 04/08/21 Unknown History Spironolactone [Aldactone] 50 mg PO QDAY 04/08/21 04/08/21 Unknown History Tamsulosin [Flomax] 0.4 mg PO QDAY 04/08/21 04/08/21 Unknown History carvediloL [Coreg] 12.5 mg PO BID 04/08/21 04/08/21 Unknown History Aspirin 325 mg PO QDAY tablet 04/12/21 Unknown Rx Lispro Insulin [HumaLOG] 0 unit SUB-Q ACHS units 04/12/21 Unknown Rx Magnesium Hydroxide [Milk of 30 ml PO Q4H PRN oral.liqd 04/12/21 Unknown Rx Magnesia] Metoclopramide [Reglan TAB] 10 mg PO Q6H PRN tablet 04/12/21 Unknown Rx Active Meds: Active Medications Acetaminophen (Acetaminophen 325 Mg Tab) 650 mg PO Q6H PRN PRN Reason: Non Cardiac Pain or Temp>100.5 Albuterol (Albuterol 2.5 Mg/3 Ml Nebu) 2.5 mg IH Q4HRT PRN PRN Reason: Shortness Of Breath Aspirin (Aspirin Ec 325 Mg Tab) 325 mg PO QDAY ALDO Atorvastatin Calcium (Atorvastatin 40 Mg Tab) 40 mg PO QHS [facility] Last Admin: 04/12/21 23:21 Dose: Not Given Documented by: Bisacodyl (Bisacodyl 10 Mg Rect Supp) 10 mg MS QDAY PRN PRN Reason: Constipation Clopidogrel Bisulfate (Clopidogrel 75 Mg Tab) 75 mg PO QDAY ALDO Dextrose (Dextrose 50% In Water (25gm) 50 Ml Syringe) 50 ml IV Q30MIN PRN; Protocol PRN Reason: Hypoglycemia Heparin Sodium (Porcine) (Heparin 5,000 Unit/1 Ml Vial) 5,000 unit SUB-Q Q12HR [facility] Last Admin: 04/12/21 23:59 Dose: 5,000 unit Documented by: Hydralazine HCl (Hydralazine 20 Mg/1 Ml Inj) 10 mg IV Q4HR PRN PRN Reason: Hypertension Ceftriaxone Sodium (Rocephin/Ns 1 Gm/50 Ml) 1 gm in 50 mls @ 100 mls/hr IV Q24H ALDO; Protocol Stop: 04/15/21 10:29 Insulin Human Lispro (Insulin Lispro 100 Unit/Ml) 0 unit SUB-Q ACHS ALDO; Protocol Last Admin: 04/13/21 09:07 Dose: Not Given Documented by: Nifedipine (Nifedipine Xl 30 Mg Tab) 30 mg PO Q12HR ALDO Last Admin: 04/12/21 23:20 Dose: Not Given Documented by: Ondansetron HCl (Ondansetron 4 Mg Odt Tab) 4 mg PO Q8H PRN PRN Reason: Nausea And Vomiting Polyethylene Glycol (Polyethylene Glycol 3350 17 Gm Powder) 17 gm PO QDAY PRN PRN Reason: Constipation Review of Systems All systems: negative (ROS negative for 10 systems except as noted below with pertinent positives and negatives.) Constitutional: no fever, no chills Ears, nose, mouth and throat: dysphagia, no decreased hearing Cardiovascular: high blood pressure, no chest pain, no palpitations Respiratory: no cough, no shortness of breath Gastrointestinal: heartburn, no abdominal pain, no nausea, no vomiting, no diarrhea Genitourinary Male: no dysuria Musculoskeletal: limitation of motion, gait dysfunction Integumentary: no rash, no pruritis, no sores Neurological: weakness, parathesias, gait dysfunction Psychiatric: no memory loss, no change in sleep habits Exam - Exam Narrative exam: MUSCULOSKELETAL SPECIALTY EXAM CONSTITUTIONAL: Well developed, well nourished, appropriately groomed. RIGHT hand dominant. LYMPHATIC: No appreciable abnormalities palpable in neck RESPIRATORY: Clear to auscultation bilaterally, no increased work of breathing CARDIOVASCULAR: Regular Rate/ Rhythm, no swelling, edema or tenderness in BUE or BLE. Pulses palpable in all extremities. All extremities warm. GI: + bowel sounds, soft, NTTP, nondistended. INTEGUMENTARY: Normal, no lesion, rash, masses or bruising noted in extremities. MUSCULOSKELETAL: BUE and BLE normal without defect, crepitus, subluxation, effusion, arthritic changes or TTP. R 4+/5 L 3/5 ROM within functional limits Tone normal NEURO: CN II : Visual simmons full to confrontation CN II, III : PERRL CN III, IV, : EOMI CN V : Facial sensation impaired CN VII : Left facial droop CN VIII : Hearing intact to finger rustle CN IX, X : Palate/uvula elevate midline, phonation normal CN XI : Intact shoulder shrug and head rotation CN XII : Tongue protrudes slightly left Sensation intact in all extremities without extinction but is decreased in bilateral lower extremities due to neuropathy. Reflexes 2+ bilaterally at biceps, brachioradialis and patella. No clonus at ankles. Coordination impaired in BUE. No tremor noted in 4 extremities. Naming and repetition intact. Follows 2 step commands but does have some apraxia. Aphasia not appreciated Dysarthria present Dysphagia not approved Neglect not appreciated POSTURE and GAIT: Sitting posture good. Balance and gait deferred until seen with therapy. PSYCH: Alert, oriented x3, affect appears euthymic. Insight appears impaired with poor safety awareness. - Constitutional Vitals: Vital Signs - 12hr 04/12/21 04/13/21 04/13/21 23:08 04:36 08:32 Temperature 98.3 F 97.7 F Pulse Rate 74 67 Respiratory 18 19 Rate Blood Pressure 171/87 Blood Pressure 154/90 [Right] O2 Sat by Pulse 98 99 99 Oximetry - Labs CBC & Chem 7: 04/13/21 07:03 04/13/21 07:03 Labs: Laboratory Results - last 72 hr 04/13/21 04/13/21 07:03 07:03 WBC 5.3 RBC 5.45 H Hgb 12.2 Hct 37.8 MCV 69 L MCH 22 L MCHC 32 RDW 15.9 H Plt Count 154 Lymph % (Auto) 27.3 [place] % (Auto) 10.7 H Eos % (Auto) 2.0 Baso % (Auto) 0.6 Lymph # (Auto) 1.5 [place] # (Auto) 0.6 Eos # (Auto) 0.1 Baso # (Auto) 0.0 Seg Neutrophils % 59.4 Seg Neutrophils # 3.2 Sodium 142 D Potassium 4.1 Chloride 104.9 Carbon Dioxide 27 Anion Gap 14 BUN 18 Creatinine 1.1 Estimated GFR > 60 BUN/Creatinine Ratio 16 Glucose 113 H Calcium 9.3 Total Bilirubin 0.30 AST 19 ALT 28 Alkaline Phosphatase 54 Total Protein 6.7 Albumin 4.0 Albumin/Globulin Ratio 1.5 Assessment and Plan Assessment and plan: Patient was assessed and evaluated for Acute Inpatient Rehab Unit. Due to the patients above-mentioned medical complexity, along with decreased functional mobility and self care, this patient continues to require and be appropriate for a comprehensive, multidisciplinary [id number] rehabilitation program. These needs cannot be met in an outpatient or other less intensive setting. The patient would continue to benefit from skilled therapy intervention for at least 3 hours per day, five days a week, with techniques specific to the needs of the patient to improve function, activities of daily living, and reintegration into the community. The patient continues to require: -- OT to improve ROM, self-care, and learn use of adaptive equipment -- PT to improve strength and balance, functional transfers, and ambulation with energy conservation techniques to improve functional mobility -- LUMBER HANDLER to address cognitive deficits and swallowing ability -- 24 hour RN to ensure and prevent skin breakdown, promote progressive independence while ensuring safety, ensure education regarding medications, and incorporation of the rehabilitation at the bedside -- 24 hour Immigration Services Officer to coordinate this interdisciplinary program, and to manage/prevent complications as a result of the patients medical comorbidities. -Plan of care by day 4 -Weekly team conferences With such a program, there is a reasonable certainty that the goals individualized for this patient can be achieved within the specified length of stay. Remote CVAs with current TIA: Continue Secondary Stroke Prevention (Antithrombotic, Statin (Goal LDL-C <70), BP control (Goal <140/90), GLU control (Goal A1c <7), and lifestyle modification). Monitor for recurrent stroke or post-stroke recrudescence. Patient continues on dual antiplatelet therapy as per neurology. This along with low-dose heparin does place him at increased risk for bleeding, will need to watch and monitor CBC accordingly. Continue neuromotor therapy as above. Family training when available. Monitor for post stroke depression, cognitive deficits, seizure, dysphagia, aphasia, shoulder hand syndrome, sensory deficits, spasticity, bowel/bladder deficits, sleep disturbance, vision deficits and DVT. Prognosis for recovery and Secondary Stroke Prevention discussed. Follow up with Neurology. No driving until cleared by Neurologist. UTI: Continue ceftriaxone until complete. Monitor for any signs of recurrence or worsening symptoms. Neuropathy: Continue to monitor, may start gabapentin if it worsens. Left foot drop: Patient does have strength in the foot statically when at rest however functionally is experiencing left foot drop. This may be partially due to apraxia and discoordination but may also require the need of an AFO in the near future. We will continue to monitor the patient and over the next few days if we do not see improvement may consult orthotics for AFO. Patient also has concurrent knee buckling on the same extremity, may need to utilize Vincentian knee cage in order to reduce risk of fall and improve his gait. Hypertension: Continue medication. Monitor blood pressure. Adjust medications as needed for normotension. Hold for hypotension. Goal SBP <140, Diabetes: Continue sliding scale insulin, controlled carb diet. Monitor glucose for euglycemia and adjust medications appropriately. There is not any current A1c in the computer system, will obtain 1 on next blood draw. Dysarthria: Continue speech therapy for improvement in patient's ability to enunciate and communicate his needs clearly. Monitor for improvement. GERD: Patient complained of heartburn upon seeing him today. Will start medication for relief. Monitor for improvement. ADL dysfunction: OT will work on improving ability to perform ADLs (including assistive devices) to increase independence and decrease caregiver burden and improve functional transfers and mobility training. Difficulty walking: PT will work on gait training and proper use of assistive devices and advance as appropriate to use of stairs and outside ambulation on uneven surfaces. Unsteadiness on feet: PT will work on improving static and dynamic sitting and standing balance as well as proper use of assistive devices to decrease risk of falls. Abnormality of gait: PT will work to improve safety and efficiency of gait through neuromotor training and gait training along with instruction on proper use of assistive devices. Muscle weakness: PT & OT will work on strengthening exercises to improve functional strength including mixture of closed and open kinetic chain exercises. Debility: PT & OT will work on improving overall functional status to improve participation with ADLs, mobility and social involvement. Fatigue: PT & OT will work on improving endurance through aerobic exercises and therapeutic activity while monitoring patients tolerance for activity and vital signs as needed. DVT ppx: Heparin twice daily Pain: Continue physical modalities in therapy and pain medications as needed to achieve functional pain control. Sleep: Monitor and address as needed. Bowel: Monitor and address as needed. Appetite: Monitor and address as needed. Discharge planning: Pending therapy progress and care plan meeting. Will continue discussion with therapy team, SW, patient and family. Restrictions/ Precautions: Falls WB status: FWB Functional Hx: ADLs: Modified independent Cognition: Independent Mobility: Modified independent Barriers to Discharge: Decreased mobility and ability to perform self care, balance deficits, weakness Estimated Length of Stay: 1014 days Discharge Destination: Home with family POST ADMISSION PHYSICIAN EVALUATION I have examined the patient and find that functional status, medical condition and appropriateness for IRF admission are essentially unchanged from those described in the preadmission screening. Will monitor for worsening neurologic dysfunction, poststroke depression, repeat current TIAs, DVT/PE, bowel and bladder complications and complications due to UTI, hypertension, diabetes and electrolyte abnormalities. Will attempt to avoid occurrence of these issues or treat them if they present themselves.
[2021-04-13] MEDS: NIFEdipine XL 30 MG TAB PO SCH ×2 (11:47→23:21)
[2021-04-13] MEDS: HEPARIN 5,000 UNIT/1 ML VIAL SUB-Q SCH ×2 (11:48→23:20)
[2021-04-14] MEDS ORDERED: LIDOCAINE VISCOUS 2% 15 ML ORAL LIQD ONE (00:24)
--- NOTE | 2021-04-14 03:41 | Procedure Note ---
Date of procedure: 04/14/21 Pre-op diagnosis: Cardiac arrest Post-op diagnosis: same Procedure: Patient is a 70-year-old admitted patient that a CODE BLUE was called on. I responded to the code the code being managed by the primary team. The primary team asked that I intubate the patient and start an IO. Endotracheal Intubation: Indication: Cardiac arrest A time-out was completed verifying correct patient, procedure, site, positioning.. The patient was placed in a flat position. Sedation was obtained using <Versed 3mg>, and additionally with <Etomidate 20mg>. The patient was easily ventilated using an ambu bag. The [employer] was used and inserted into the oropharynx at which time there was a Grade 1 view of the vocal cords. A 7.5-[place] endotracheal tube was inserted and visualized going through the vocal cords. The stylette was removed. Colorimetric change was visualized on the capnography. Breath sounds were heard in both lung simmons equally. The endotracheal tube was placed at 22 cm, measured at the teeth. Chest x-ray will be ordered by the primary team. Estimated Blood Loss: none The patient tolerated the procedure well and there were no complications. Care will be transferred back to the primary team. IO procedure note: A right tibial IO was started. Site draped and cleaned in a sterile fashion. Battery-powered drill was used. IO placed without complication. IO functioning well. IO secured. Estimated blood loss: none
--- NOTE | 2021-04-14 04:01 | Death Note ---
Note Date of : 04/14/21 Time of : 03:35 Time Pronounced: 03:35 - Preliminary Cause of (problem) (1) CVA (cerebral vascular accident) Qualifiers: CVA mechanism: unspecified Qualified Code(s): I63.9 - Cerebral infarction, unspecified Preliminary cause of Patient fell from the bathroom. Patient developed agonal breathing and patient was found asystole, PEA. Subsequently patient was intubated and IO was placed. CPR was given as per ACLS protocol. 5 epi 2 bicarb and 1 calcium gluconate was given. But patient failed to regain the pulse. Patient has no BP no pulse no reflex. Patient at 3:35 AM on 04/14/2021 due to cardiopulmonary arrest, CVA. We will going to notify the family and the rehab doctor.
[2021-04-14] MEDS: INSULIN LISPRO 100 UNIT/ML SUB-Q SCH (04:28)
[2021-04-14] MEDS ORDERED: CALCIUM CHLORIDE 1,000 MG/10 ML SYRINGE IV ONE (04:59)
[2021-04-14] MEDS ORDERED: EPINEPHrine 1 MG/10 ML SYRINGE ONE (04:59)
[2021-04-14] MEDS ORDERED: SODIUM BICARB 8.4% 50 MEQ/50 ML SYRINGE IV ONE (04:59)
[2021-04-14 08:06] VITALS: BP 209/162
--- NOTE | 2021-04-14 10:28 | Event Note ---
Date: 04/14/21 I was notified that the patient about 0400. I contacted the home and asked them to forward the certificate to me for completion. I attempted to contact the son to express our condolences and to offer any assistance needed but there was no answer and the mailbox was full.
== END 2021-04-14 03:35 | DRG 56 ==
LOC: 3A 14:48 → UNDOADMIN 14:48 → 3B 21:52
PROVIDERS: ADMIT Physical Medicine & Rehabilitation; ATTEND Physical Medicine & Rehabilitation
PROC: 5A12012 Performance of Cardiac Output, Single, Manual (ICD-10-PCS; principal; 2021-04-14)
PROC: 0BH17EZ Insertion of Endotracheal Airway into Trachea, Via Natural or Artificial Opening (ICD-10-PCS; 2021-04-14)
DX: I69.354 Hemiplegia and hemiparesis following cerebral infarction affecting left non-dominant side (principal); I63.9 Cerebral infarction, unspecified; N39.0 Urinary tract infection, site not specified; I46.9 Cardiac arrest, cause unspecified; I10 Essential (primary) hypertension; E11.40 Type 2 diabetes mellitus with diabetic neuropathy, unspecified; R47.1 Dysarthria and anarthria; K21.9 Gastro-esophageal reflux disease without esophagitis; R53.81 Other malaise; R53.83 Other fatigue; Z82.49 Family history of ischemic heart disease and other diseases of the circulatory system; Z83.3 Family history of diabetes mellitus; Z79.899 Other long term (current) drug therapy; Z79.82 Long term (current) use of aspirin
CPT/HCPCS: 36415; 80053; 82962; 85025; G0378; J0171; J0696; J1644; J1815; Q0162